=== PATIENT | male | born 1980 | race Hispanic/Latino ===

== ENCOUNTER 2019-06-10 17:24 | Inpatient (IN) | payer OTHER ==
[2019-06-10] MEDS ORDERED: ANTIVERT PO ONE (18:55)
[2019-06-10] MEDS ORDERED: ZOFRAN IV ONE (18:55)
[2019-06-10] MEDS ORDERED: FIORICET PO ONE (18:55)
--- NOTE | 2019-06-10 19:01 | Emergency Department Report ---
HPI - General Chief Complaint: Medical Clearance Time Seen by Provider: 06/10/19 18:41 - HPI HPI: Room 24 The patient is a 39-year-old male presenting with chief complaint headache and vertigo. 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 The patient states he has had frequent falls since this injury as well as chronic headaches. The patient states yesterday began to feel as though the room was spinning and this has been constant. The patient states is chronic headache has worsened and he gives his pain is scored 10/10. Patient complains of a headache on the left parietal and right occipital region. Patient admits to nausea and vomiting. The patient presented with the symptoms to another ED yesterday and reportedly said he could not live like this. The patient reportedly took a sharp object and cut his left wrist which subsequently led to him being placed on a 1013 and sent to a psychiatric hospital. The patient was sent to the ED from [facility] for neuro evaluation Location: [See above] Duration: [See above] Quality: [See above] Severity: [See above] Modifying factors: [see above] Context: [see above] Mode of transportation: [not driving] ED Past Medical Hx - Past Medical History Hx Psychiatric Treatment: (anxiety, depression) Additional medical history: [place] palsy, carpal tunnel - Surgical History Past Surgical History?: No - Family History Family history: no significant - Social History Smoking Status: Current Some Day Smoker Substance Use Type: Marijuana ED Review of Systems ROS: Stated complaint: MEDICAL CLEAR Other details as noted in HPI Constitutional: no symptoms reported Eyes: denies: eye pain ENT: denies: throat pain Respiratory: no symptoms reported Cardiovascular: denies: as per HPI, chest pain Endocrine: no symptoms reported Gastrointestinal: nausea, vomiting Genitourinary: denies: dysuria Musculoskeletal: denies: back pain Neurological: headache, vertigo Physical Exam - Physical Exam Physical Exam: GENERAL: The patient is well-developed well-nourished male lying on stretcher not appearing to be in acute distress. [] HEENT: Normocephalic. Atraumatic. Extraocular motions are intact. Prolonged n ystagmus in both directions with both eyes NECK: Supple. No meningitic signs are noted. There is no adenopathy noted. CHEST/LUNGS: Clear to auscultation. There is no respiratory distress noted. HEART/CARDIOVASCULAR: Regular. There is no tachycardia. There is no gallop rub or murmur. ABDOMEN: Abdomen is soft, nontender. Patient has normal bowel sounds. There is no abdominal distention. SKIN: There is no rash. There is no edema. There is no diaphoresis. NEURO: The patient is awake, alert, and oriented. The patient is cooperative. The patient has residual left-sided weakness from previous CVA. Cranial nerves II through XII grossly intact. Nystagmus noted in both directions. The patient has normal speech MUSCULOSKELETAL: There is no evidence of acute injury. ED Medical Decision Making - Lab Data Result diagrams: 06/10/19 19:20 06/10/19 19:20 Laboratory Tests 06/10/19 06/10/19 06/10/19 19:20 19:20 19:20 WBC 5.3 RBC 4.41 Hgb 14.5 Hct 41.7 MCV 95 H MCH 33 H MCHC 35 H RDW 13.4 Plt Count 189 Lymph % (Auto) 30.6 Sac % (Auto) 7.1 Eos % (Auto) 5.6 H Baso % (Auto) 1.3 Lymph # 1.6 Sac # 0.4 Eos # 0.3 Baso # 0.1 Seg Neutrophils % 55.4 Seg Neutrophils # 2.9 Sodium 140 Potassium 4.4 Chloride 100.2 Carbon Dioxide 30 Anion Gap 14 BUN 5 L Creatinine 0.7 L Estimated GFR > 60 BUN/Creatinine Ratio 7 Glucose 103 H Calcium 8.9 Total Bilirubin 0.20 AST 20 ALT 12 Alkaline Phosphatase 103 Total Protein 7.3 Albumin 4.3 Albumin/Globulin Ratio 1.4 TSH 0.549 Free T4 1.18 Phenytoin 06/10/19 20:00 WBC RBC Hgb Hct MCV MCH MCHC RDW Plt Count Lymph % (Auto) Sac % (Auto) Eos % (Auto) Baso % (Auto) Lymph # Sac # Eos # Baso # Seg Neutrophils % Seg Neutrophils # Sodium Potassium Chloride Carbon Dioxide Anion Gap BUN Creatinine Estimated GFR BUN/Creatinine Ratio Glucose Calcium Total Bilirubin AST ALT Alkaline Phosphatase Total Protein Albumin Albumin/Globulin Ratio TSH Free T4 Phenytoin 53.0 H* - Radiology Data Radiology results: report reviewed (CT head), image reviewed (CT head) [facility] [address] [place] [address] Cat Scan Report Signed Patient: LUIZA BAXTER MR#: [id number] : 1980 Acct:[id number] Age/Sex: 39 / M ADM Date: 06/10/19 Loc: ED Attending Dr: Ordering Physician: VERA ALEJANDRA MD Date of Service: 06/10/19 Procedure(s): CT head/brain wo con Accession Number(s): [id number] cc: VERA ALEJANDRA MD CT head/brain wo con INDICATION / CLINICAL INFORMATION: 39 years Male; headache and vertigo, h/o TBI 2018. TECHNIQUE: Routine CT head without contrast. All CT scans at this location are performed using CT dose reduction for ALARA by means of automated exposure control. COMPARISON: None. FINDINGS: BRAIN / INTRACRANIAL CONTENTS: No acute hemorrhage, mass effect, midline shift, hydrocephalus, or acute, large territorial infarct. No chronic infarct or focal atrophy. Normal brain volume and ventricular/sulcal size for age. No significant white matter abnormality. CRANIOCERVICAL JUNCTION: No significant abnormality. ORBITS: No significant abnormality of visualized orbits. SINUSES / MASTOIDS: No significant abnormality of the visualized paranasal sinuses or mastoid air cells. ADDITIONAL FINDINGS: None. IMPRESSION: 1. No focal mass, hemorrhage, hydrocephalus, or acute, large territorial infar ct. Signer Name: Madan Hamilton MD, III Signed: 06/10/2019 8:58 PM Workstation Name: [id number] Transcribed By: HR Dictated By: Madan Hamilton MD Electronically Authenticated By: Madan Hamilton MD Signed Date/Time: 06/10/192057 DD/ 55 TD/TT: - Differential Diagnosis vertigo, cerebellar mass, ICH, Critical care attestation.: If time is entered above; I have spent that time in minutes in the direct care of this critically ill patient, excluding procedure time. ED Disposition Clinical Impression: Dilantin toxicity Disposition: OP ADMIT IP TO THIS HOSP Is pt being admited?: Yes Does the pt Need Aspirin: No Condition: Fair Time of Disposition: 21:45 (hospitalist notified)
[2019-06-10 19:51] LABS: Basophils # (Auto) 0.1 K/mm3 (0.0-0.1); Basophils % (Auto) 1.3 % (0.0-1.8); Eosinophils # (Auto) 0.3 K/mm3 (0.0-0.4); Eosinophils % (Auto) 5.6 % (0.0-4.3); Hematocrit 41.7 % (35.5-45.6); Hemoglobin 14.5 gm/dl (11.8-15.2); Lymphocytes # (Auto) 1.6 K/mm3 (1.2-5.4); Lymphocytes % (Auto) 30.6 % (13.4-35.0); Mean Corpuscular HGB Conc 35 % (32-34); Mean Corpuscular Volume 95 fl (84-94); Monocytes # (Auto) 0.4 K/mm3 (0.0-0.8); Monocytes % (Auto) 7.1 % (0.0-7.3); Platelet Count 189 K/mm3 (140-440); Red Blood Count 4.41 M/mm3 (3.65-5.03); Red Cell Distribution Width 13.4 % (13.2-15.2)
[2019-06-10 20:28] LABS: Albumin 4.3 g/dL (3.9-5); BUN/Creatinine Ratio 7; Blood Urea Nitrogen 5 mg/dL (9-20); Calcium 8.9 mg/dL (8.4-10.2); Hemolysis Index 126
[2019-06-10 20:30] LABS: Alanine Aminotransferase 12 units/L (7-56)
[2019-06-10 20:35] LABS: Free T4 (Free Thyroxine) 1.18 ng/dL (0.76-1.46)
--- NOTE | 2019-06-10 21:02 | Cat Scan Report ---
CT head/brain wo con INDICATION / CLINICAL INFORMATION: 39 years Male; headache and vertigo, h/o TBI 2018. TECHNIQUE: Routine CT head without contrast. All CT scans at this location are performed using CT dos e reduction for ALARA by means of automated exposure control. COMPARISON: None. FINDINGS: BRAIN / INTRACRANIAL CONTENTS: No acute hemorrhage, mass effect, midline shift, hydrocephalus, or acu te, large territorial infarct. No chronic infarct or focal atrophy. Normal brain volume and ventricul ar/sulcal size for age. No significant white matter abnormality. CRANIOCERVICAL JUNCTION: No significant abnormality. ORBITS: No significant abnormality of visualized orbits. SINUSES / MASTOIDS: No significant abnormality of the visualized paranasal sinuses or mastoid air kelley ls. ADDITIONAL FINDINGS: None. IMPRESSION: 1. No focal mass, hemorrhage, hydrocephalus, or acute, large territorial infarct. Signer Name: Madan Hamilton MD, III Signed: 06/10/2019 8:58 PM Workstation Name: [id number]
[2019-06-11] MEDS ORDERED: ZOFRAN IV PRN (00:18)
[2019-06-11] MEDS: TYLENOL PO PRN ×4 (01:55→21:37)
[2019-06-11] MEDS: HEPARIN SUB-Q SCH ×3 (01:55→21:40)
[2019-06-11] MEDS ORDERED: NACL 0.9% 1000 ML 1,000 ML IV SCH (06:00)
--- NOTE | 2019-06-11 06:40 | History and Physical Report ---
CHIEF COMPLAINT: Headache and vertigo. Other complaint includes frequent falls, nausea and vomiting. HISTORY OF PRESENT ILLNESS: The patient is a 39-year-old male sent from [facility] for medical clearance and has been having headache and vertigo. The patient also complains of nausea and vomiting and was sent to another Emergency Room the day prior to presentation and he said he has been forgetting things and cut his left wrist with a sharp object and was placed on involuntary confinement and he ended up in the psychiatric hospital from where he was sent to this hospital for medical clearance. There is no history of fever or chills. No history of shortness of breath or chest pain. The patient was evaluated and found to have high level of Dilantin level. PAST MEDICAL HISTORY: Pertinent for seizure disorder. Also patient has past history of traumatic brain injury after falling down from a height. The patient also has past medical history of [place]el's palsy, carpal tunnel syndrome, anxiety disorder and depression. PAST SURGICAL HISTORY: Unremarkable. FAMILY HISTORY: Noncontributory. SOCIAL HISTORY: The patient smokes cigarettes, uses marijuana and does not drink alcohol. MEDICATIONS: The patient is on Keppra 750 mg by mouth twice daily. Also, the patient is on Dilantin 300 mg at bedtime. ALLERGIES: THE PATIENT IS ALLERGIC TO BEE VENOM. REVIEW OF SYSTEMS: CONSTITUTIONAL: There is no fever, no chills, no diaphoresis. HEENT: There is headache. There is no sore throat. CARDIOVASCULAR SYSTEM: There is no chest pain or orthopnea. RESPIRATORY SYSTEM: There is no shortness of breath or cough. GASTROINTESTINAL SYSTEM: Nausea and vomiting present. No abdominal pain, no diarrhea or constipation. NEUROLOGICAL SYSTEM: Anxiety present. Occasional change in mental status noted. MUSCULOSKELETAL SYSTEM: There is no joint pain or swelling. DERMATOLOGICAL SYSTEM: There is no skin rash or itching. GENITOURINARY SYSTEM: There is no dysuria, hematuria, or flank pain. Rest of system review is normal. PHYSICAL EXAMINATION: GENERAL: At the time of exam, the patient was found to be alert, oriented x 3, anxious but not in acute distress. VITAL SIGNS: Shows temperature of 98 degrees Fahrenheit, pulse of 82, respirations 14, blood pressure 130/90, O2 sat of 97% on room air. HEENT: Showed pupils to be equal, round, reactive to light and accommodating. Extraocular muscles are intact. NECK: Supple with no JVD or carotid bruit. CARDIOVASCULAR SYSTEM: Showed normal first and second heart sounds with no gallops or murmurs. RESPIRATORY SYSTEM: Show good air entry on both sides of the lung with no abnormal breath sounds. GASTROINTESTINAL SYSTEM: Show abdomen to be full, soft, nontender with no organomegaly or rigidity. NEUROLOGICAL: Shows no focal deficit. MUSCULOSKELETAL SYSTEM: Show no joint swelling or tenderness. DERMATOLOGICAL SYSTEM: Show patient with a bandage in the left wrist area where he said he cut himself. Otherwise, there are no skin rashes. GENITOURINARY SYSTEM: Show no costovertebral angle tenderness. PERTINENT LABORATORY DATA AND IMAGING STUDIES: The patient had a CT of the head without contrast done that shows no focal mass, hemorrhage, hydrocephalus, or large territorial infarct. Lab results, the patient had CBC done with normal white count, normal hemoglobin and normal hematocrit with CBC differential showing elevated eosinophil count of 5.6. The patient's chemistry was unremarkable. The patient's toxicology screen show high Dilantin level of 53. DIAGNOSES: 1. Dilantin toxicity. 2. History of seizure disorder. PLAN OF CARE: 1. The patient will be admitted to telemetry. 2. The patient will have Dilantin level checked this morning. 3. The patient will be on IV normal saline at 125 mL an hour. 4. The patient will be Neurology consult with Dr. barahona for review of seizure medications. 5. The patient will be on p.r.n. medications like Tylenol 650 mg by mouth every 4 hours for fever and headache and IV Zofran 4 mg every 8 hours for nausea and vomiting. 6. The patient will be on IV lorazepam 1 mg every 2 hours as needed for seizure. 7. The patient will be on his home medication with Dilantin held and Keppra started at 750 mg by mouth twice daily. 8. The patient's diet will be regular diet. JOB# [id number] OCN/NTS MTDD
[2019-06-11] MEDS: KEPPRA PO SCH ×2 (09:32→21:40)
[2019-06-11] MEDS ORDERED: NON-FORMULARY (Levetiracetam [Keppra Tab] 750 MG) PO SCH (10:00)
--- NOTE | 2019-06-11 10:11 | Consultation ---
History of Present Illness Consult date: 06/11/19 Reason for Consult: seizure Chief complaint: Seizures History of present illness: Patient admitted from the psych facility where he attempted to injure himself cutting his left wrist and apparently has a seizure disorder began within the last year due to traumatic brain injury patient is a poor historian I called the psych facility to get more information including an MRI of the brain that he may have had without any help nevertheless patient describes having seizures since falling off a ladder within the year headaches inability to manipulate objects vision changes inability to read "I have a college degree and I can't read" the patient also describes the world looks like it's upside down Patient arrived with Dilantin toxicity his Dilantin level was over 53 he is unsure why this has happened he states that he makes a akash on the wall every time he takes the medication CT head shows no acute process patient's that he had an MRI done recently somewhere or try to locate an MRI and consider repeating it Patient did not have a seizure at the outside facility or since arrival here Yesterday to arrival here he was complaining of nausea vomiting difficulty with gait vertigo and increase headaches Patient was taking 300 Dilantin at night He states that he has seizures but unclear when his last one was denies ever being intubated for seizures, also denies prolonged seizures "I think I've had a stroke in the past" No SI or HI Past medical health palsy anxiety carpal tunnel Family history negative for neurologic disease Social history positive for tobacco and THC negative for alcohol Allergies bee sting Review of systems patient denies any loss of consciousness recently his headache is global cephalic without migrainous features or trigeminal features headaches are non-positional he denies any new focal deficits left or right no difficulty with speech or swallow he does add that his vision has changed and he cannot think Vahid rights as above patient denies any fever shortness of breath chest pain no change of bowel and bladder no new spine pain or radicular symptoms patient denies ongoing nausea vomiting vertigo Since admission patient states that he's feeling a little bit better He was started on Keppra in the ED and seizure precaution Medications and Allergies Allergies Allergy/AdvReac Type Severity Reaction Status Date / Time bee venom protein (honey bee) Allergy Swelling Verified 06/10/19 18:02 Home Medications Medication Instructions Recorded Confirmed Last Taken Type Phenytoin [Dilantin] 300 mg PO HS 06/11/19 06/11/19 1 Day Ago History ~06/10/19 levETIRAcetam [Keppra TAB] 750 mg PO BID 06/11/19 06/11/19 1 Day Ago History ~06/10/19 Active Meds: Active Medications Acetaminophen (Tylenol) 650 mg PO Q4H PRN PRN Reason: Fever >101 Last Admin: 06/11/19 09:43 Dose: 650 mg Documented by: Heparin Sodium (Porcine) (Heparin) 5,000 unit SUB-Q Q12HR [facility] Last Admin: 06/11/19 09:32 Dose: 5,000 unit Documented by: Sodium Chloride (Nacl 0.9% 1000 Ml) 1,000 mls @ 125 mls/hr IV DIRECT THOMAS Levetiracetam (Keppra) 750 mg PO BID [facility] Last Admin: 06/11/19 09:32 Dose: 750 mg Documented by: Lorazepam (Ativan) 1 mg IV Q2H PRN PRN Reason: Seizures Ondansetron HCl (Zofran) 4 mg IV Q8H PRN PRN Reason: Nausea And Vomiting Physical Examination - Vital Signs Vital Signs: Vital Signs Temp Pulse Resp BP Pulse Ox 98.9 F 74 18 136/68 100 06/10/19 18:51 06/10/19 18:51 06/10/19 18:51 06/10/19 18:51 06/10/19 18:51 - Physical Exam Narrative exam: no aphasia Patient has no signs of agnosia or apraxia - Constitutional General appearance: comfortable - EENT EENT: Present: hearing intact - Cardiovascular Cardiovascular: Present: regular rate Extremities: Present: no peripheral edema bilatateraly - Gastrointestinal Gastrointestinal: Present: non-tender - Neurologic Cranial nerve examination: PERRL, EOMI, nystagmus, V1/V2/V3 grossly intact, face symmetric, tongue midline, intact Speech examination: intact Sensorimotor examination: intact Motor examination - right side: 5: biceps, triceps, wrist flexion, wrist extension, elementary teacher, hip flexors, knee extensors, dorsiflexion, toe extension (EHL), plantarflexion Motor examination - left side: 5/5: biceps, triceps, wrist flexion, wrist extension, elementary teacher, hip flexors, knee extensors, dorsiflexion, toe extension (EHL), plantarflexion Detailed sensory examination: intact Reflexes: 2+: ankle, bicep, knee, tricep Cerebellar examination: nystagmus - Psychiatric Psychiatric: Present: depressed Results - Laboratory Findings CBC and BMP: 06/10/19 19:20 06/10/19 19:20 Abnormal Lab Findings: Abnormal Labs 06/10/19 06/10/19 06/10/19 19:20 19:20 20:00 MCV 95 H MCH 33 H MCHC 35 H Eos % (Auto) 5.6 H BUN 5 L Creatinine 0.7 L Glucose 103 H Phenytoin 53.0 H* Assessment and Plan ? Seizure disorder from prior traumatic brain injury within the last year CT head is negative -he was placed on Dilantin in the past patient arrives with Dilantin toxicity possibly overdose without breakthrough seizures he's been stable since admission exam is positive for nystagmus and self described loss of cortical function namely vision ability to read and understand along with headaches, for new onset seizures within the past year and the above described deficits check MRI brain without, continue Keppra, EEG 2 Dilantin toxicity discontinue Dilantin and start Keppra good hydration and follow levels 3 headaches Global cephalic without migrainous features patient may benefit from indomethacin 50 when necessary, will check MRI brain Seizure precautions Suicide precaution
--- NOTE | 2019-06-11 16:26 | Magnetic Resonance Report ---
MRI BRAIN 06/11/2019 INDICATION / CLINICAL INFORMATION: seizure d/o, new cortical compliants, and PALMA,. TECHNIQUE: Multiplanar, multisequence MR images of the brain were obtained. COMPARISON: None available. FINDINGS: BRAIN / INTRACRANIAL CONTENTS: MR images of the brain demonstrate no evidence of acute intracranial a bnormality. Ventricles and sulci are normal in size and shape. There is no evidence of acute ischemic injury, hemorrhage, or mass. There are 3 or 4 white matter T2 weighted hyperintensities in the periventricular white matter of cer ebral hemispheres, in a nonspecific appearance. Differential diagnosis in a patient of this age would include chronic small vessel ischemic change, demyelination. Temporal lobe structures are normal and symmetric. There are no abnormal extra-axial fluid collections. EXTRACRANIAL: Unremarkable CRANIOCERVICAL JUNCTION: No significant abnormality. VASCULAR FLOW-VOIDS: No significant abnormality. IMPRESSION: No acute abnormality.. No evidence of abnormal mass. Incidental white matter T2 weighted hyperintensities noted. Signer Name: Segun Braswell MD Signed: 06/11/2019 4:21 PM Workstation Name: [id number]
--- NOTE | 2019-06-11 18:41 | Event Note ---
Date: 06/11/19 39-year-old male presents form psych facility with complaints of nausea vomiting ataxia and the feeling of dizziness. Workup patient found to have Dilantin toxicity at a level of 53. Patient had recent CT scan was unremarkable. Patient appears to feel somewhat better after hospital stay. We'll continue Keppra discontinue Dilantin. Aggressive hydration follow Dilantin levels. Will also have patient see psychiatry. Soon to be medical clear to transfer back to psychiatric facility.
[2019-06-12] MEDS: KEPPRA PO SCH ×2 (09:43→21:14)
[2019-06-12] MEDS: TYLENOL PO PRN (09:43)
[2019-06-12] MEDS: HEPARIN SUB-Q SCH ×2 (09:43→21:14)
[2019-06-12] MEDS: LIDODERM 5% TD SCH (09:48)
--- NOTE | 2019-06-12 13:53 | Progress Note ---
Assessment and Plan ? Seizure disorder from prior TBI within the last year CT head is negative, MRI b neg he was placed on Dilantin in the past patient arrives with Dilantin toxicity possibly overdose no further breakthrough seizures, stable since admission exam is positive for nystagmus cont. constellation of complaints w/o objective findings continue Keppra, EEG ordered discontinue Dilantin good hydration and follow levels headaches: Global cephalic without migrainous features patient may benefit from indomethacin 50 when necessary Seizure precautions Suicide precaution Subjective Date of service: 06/12/19 Principal diagnosis: dilantin tox Interval history: no events overnight no sz still feels dizzy, has a constellation of complaints PALMA 10/10 non rad., no gustavo. sx, no tension, pt was seen comfortable MRI b neg eeg pending keppra on board dilantin now less than 50 no fever no n.v.v "i dont know where my home town is, why are my ears ringing i cant rem anything why do i lose my sight why do i have a head ache' i explained the mri b normal results, and further let pt know that I have no new [employer]CIENT [employer]ATOR dis process uncovered Objective - Exam Narrative Exam: aox 4 no aphasia no agnosia L and R nystagmus no cerebellar signs no extra movements neck supple - Vital Sign Vital Signs - 12hr 06/12/19 06/12/19 04:27 08:25 Temperature 98.4 F 97.6 F Pulse Rate 73 81 Respiratory 18 18 Rate Blood Pressure 84/52 115/76 O2 Sat by Pulse 95 98 Oximetry - Neurologic Cranial nerve examination: PERRL, EOMI, VFF, intact Speech examination: intact Detailed motor examination: grossly full strength in, full strength in all jo, other - Psychiatric Psychiatric: depressed - Laboratory Findings CBC and BMP: 06/10/19 19:20 06/10/19 19:20 Abnormal Lab Findings: Abnormal Labs 06/10/19 06/10/19 06/10/19 19:20 19:20 20:00 MCV 95 H MCH 33 H MCHC 35 H Eos % (Auto) 5.6 H BUN 5 L Creatinine 0.7 L Glucose 103 H Phenytoin 53.0 H* 06/11/19 05:25 MCV MCH MCHC Eos % (Auto) BUN Creatinine Glucose Phenytoin 46.3 H*
--- NOTE | 2019-06-12 21:12 | Progress Note ---
Assessment and Plan - Patient Problems (1) Dilantin toxicity Current Visit: Yes Status: Acute Plan to address problem: Patient presents with Dilantin toxicity. Has decreased with hydration from 5843. We'll follow levels in the a.m. With stable discharge back to rehabilitation facility. (2) Seizure disorder Current Visit: Yes Status: Acute Plan to address problem: Patient has not had any further seizures on Keppra. History Interval history: No new changes. Patient complains of continued headache. He has had for years. No new concerns. Dilantin down to 43. Hospitalist Physical - Constitutional Vitals: Temp Pulse Resp BP Pulse Ox 97.7 F 78 18 110/76 99 06/12/19 20:44 06/12/19 20:43 06/12/19 20:43 06/12/19 20:43 06/12/19 20:43 General appearance: Present: no acute distress - EENT Eyes: Present: PERRL, EOM intact ENT: hearing intact, dentition normal - Neck Neck: Present: supple, normal ROM - Respiratory Respiratory: bilateral: CTA - Cardiovascular Rhythm: regular - Extremities Extremities: no ischemia, pulses intact, pulses symmetrical, No edema, normal t emperature, normal color Peripheral Pulses: within normal limits - Abdominal General gastrointestinal: soft, non-tender, non-distended - Integumentary Integumentary: Present: clear, warm, dry - Psychiatric Psychiatric: appropriate mood/affect, intact judgment & insight, memory intact - Neurologic Neurologic: CNII-XII intact, other (nystagmus) Results - Labs CBC & Chem 7: 06/10/19 19:20 06/10/19 19:20 Labs: Laboratory Last Values WBC 5.3 K/mm3 (4.5-11.0) 06/10/19 19:20 RBC 4.41 M/mm3 (3.65-5.03) 06/10/19 19:20 Hgb 14.5 gm/dl (11.8-15.2) 06/10/19 19:20 Hct 41.7 % (35.5-45.6) 06/10/19 19:20 MCV 95 fl (84-94) H 06/10/19 19:20 MCH 33 pg (28-32) H 06/10/19 19:20 MCHC 35 % (32-34) H 06/10/19 19:20 RDW 13.4 % (13.2-15.2) 06/10/19 19:20 Plt Count 189 K/mm3 (140-440) 06/10/19 19:20 Lymph % (Auto) 30.6 % (13.4-35.0) 06/10/19 19:20 [place] % (Auto) 7.1 % (0.0-7.3) 06/10/19 19:20 Eos % (Auto) 5.6 % (0.0-4.3) H 06/10/19 19:20 Baso % (Auto) 1.3 % (0.0-1.8) 06/10/19 19:20 Lymph # 1.6 K/mm3 (1.2-5.4) 06/10/19 19:20 [place] # 0.4 K/mm3 (0.0-0.8) 06/10/19 19:20 Eos # 0.3 K/mm3 (0.0-0.4) 06/10/19 19:20 Baso # 0.1 K/mm3 (0.0-0.1) 06/10/19 19:20 Seg Neutrophils % 55.4 % (40.0-70.0) 06/10/19 19:20 Seg Neutrophils # 2.9 K/mm3 (1.8-7.7) 06/10/19 19:20 Sodium 140 mmol/L (137-145) 06/10/19 19:20 Potassium 4.4 mmol/L (3.6-5.0) 06/10/19 19:20 Chloride 100.2 mmol/L (98-107) 06/10/19 19:20 Carbon Dioxide 30 mmol/L (22-30) 06/10/19 19:20 14 mmol/L 06/10/19 19:20 BUN 5 mg/dL (9-20) L 06/10/19 19:20 0.7 mg/dL (0.8-1.5) L 06/10/19 19:20 Estimated GFR > 60 ml/min 06/10/19 19:20 7 % 06/10/19 19:20 Glucose 103 mg/dL (75-100) H 06/10/19 19:20 Calcium 8.9 mg/dL (8.4-10.2) 06/10/19 19:20 0.20 mg/dL (0.1-1.2) 06/10/19 19:20 AST 20 units/L (5-40) 06/10/19 19:20 ALT 12 units/L (7-56) 06/10/19 19:20 103 units/L (35-129) 06/10/19 19:20 7.3 g/dL (6.3-8.2) 06/10/19 19:20 4.3 g/dL (3.9-5) 06/10/19 19:20 1.4 % 06/10/19 19:20 TSH 0.549 mlU/mL (0.270-4.200) 06/10/19 19: Free T4 1.18 ng/dL (0.76-1.46) 06/10/19 19:20 Phenytoin 46.3 ug/mL (10.0-20.0) H* 06/11/19 05:25 Active Medications - Current Medications Current Medications: Generic Name Dose Route Start Last Admin Trade Name Freq PRN Reason Stop Dose Admin Acetaminophen 650 mg 06/11/19 00:18 06/12/19 09:43 Tylenol PO 650 mg Q4H PRN Administration Fever >101 Heparin Sodium (Porcine) 5,000 unit 06/11/19 00:15 06/12/19 09:43 Heparin SUB-Q 5,000 unit Q12HR THOMAS Administration Sodium Chloride 1,000 mls @ 125 mls/hr 06/11/19 06:00 Nacl 0.9% 1000 Ml IV DIRECT THOMAS Levetiracetam 750 mg 06/11/19 10:00 06/12/19 09:43 Keppra PO 750 mg BID THOMAS Administration Lidocaine 1 each 06/12/19 10:00 06/12/19 09:48 Lidoderm 5% TD 1 each QDAY THOMAS Administration Lorazepam 1 mg 06/11/19 00:17 Ativan IV Q2H PRN Seizures Ondansetron HCl 4 mg 06/11/19 00:18 06/11/19 18:36 Zofran IV 4 mg Q8H PRN Administration Nausea And Vomiting
[2019-06-13] MEDS: HEPARIN SUB-Q SCH ×2 (11:07→21:20)
[2019-06-13] MEDS: KEPPRA PO SCH ×2 (11:07→21:21)
[2019-06-13] MEDS: LIDODERM 5% TD SCH (11:08)
[2019-06-13] MEDS: TYLENOL PO PRN (11:22)
--- NOTE | 2019-06-13 13:25 | Progress Note ---
Assessment and Plan Assessment and plan: Dilantin toxicity. Dilantin level remains elevated. Seizure disorder. Patient with no further seizures on Keppra. Disposition. Consider discharge in a.m. if stable. History Interval history: No new issues overnight. Hospitalist Physical - Constitutional Vitals: Temp Pulse Resp BP Pulse Ox 98.2 F 86 18 117/72 97 06/13/19 10:59 06/13/19 12:14 06/13/19 10:59 06/13/19 12:14 06/13/19 12:14 General appearance: Present: no acute distress - EENT Eyes: Present: PERRL, EOM intact ENT: hearing intact, clear oral mucosa, dentition normal - Neck Neck: Present: supple, normal ROM - Respiratory Respiratory effort: normal Respiratory: bilateral: CTA - Cardiovascular Rhythm: regular Heart Sounds: Present: S1 & S2. Absent: gallop, rub - Extremities Extremities: no ischemia, No edema, Full ROM - Abdominal General gastrointestinal: soft, non-tender, non-distended, normal bowel sounds - Integumentary Integumentary: Present: clear, warm, dry - Neurologic Neurologic: CNII-XII intact, moves all extremities Results - Labs CBC & Chem 7: 06/10/19 19:20 06/10/19 19:20 Labs: Laboratory Last Values WBC 5.3 K/mm3 (4.5-11.0) 06/10/19 19:20 RBC 4.41 M/mm3 (3.65-5.03) 06/10/19 19:20 Hgb 14.5 gm/dl (11.8-15.2) 06/10/19 19:20 Hct 41.7 % (35.5-45.6) 06/10/19 19:20 MCV 95 fl (84-94) H 06/10/19 19:20 MCH 33 pg (28-32) H 06/10/19 19:20 MCHC 35 % (32-34) H 06/10/19 19:20 RDW 13.4 % (13.2-15.2) 06/10/19 19:20 Plt Count 189 K/mm3 (140-440) 06/10/19 19:20 Lymph % (Auto) 30.6 % (13.4-35.0) 06/10/19 19:20 [place] % (Auto) 7.1 % (0.0-7.3) 06/10/19 19:20 Eos % (Auto) 5.6 % (0.0-4.3) H 06/10/19 19:20 Baso % (Auto) 1.3 % (0.0-1.8) 06/10/19 19:20 Lymph # 1.6 K/mm3 (1.2-5.4) 06/10/19 19:20 [place] # 0.4 K/mm3 (0.0-0.8) 06/10/19 19:20 Eos # 0.3 K/mm3 (0.0-0.4) 06/10/19 19:20 Baso # 0.1 K/mm3 (0.0-0.1) 06/10/19 19:20 Seg Neutrophils % 55.4 % (40.0-70.0) 06/10/19 19:20 Seg Neutrophils # 2.9 K/mm3 (1.8-7.7) 06/10/19 19:20 Sodium 140 mmol/L (137-145) 06/10/19 19:20 Potassium 4.4 mmol/L (3.6-5.0) 06/10/19 19:20 Chloride 100.2 mmol/L (98-107) 06/10/19 19:20 Carbon Dioxide 30 mmol/L (22-30) 06/10/19 19:20 14 mmol/L 06/10/19 19:20 BUN 5 mg/dL (9-20) L 06/10/19 19:20 0.7 mg/dL (0.8-1.5) L 06/10/19 19:20 Estimated GFR > 60 ml/min 06/10/19 19:20 7 % 06/10/19 19:20 Glucose 103 mg/dL (75-100) H 06/10/19 19:20 Calcium 8.9 mg/dL (8.4-10.2) 06/10/19 19:20 0.20 mg/dL (0.1-1.2) 06/10/19 19:20 AST 20 units/L (5-40) 06/10/19 19:20 ALT 12 units/L (7-56) 06/10/19 19:20 103 units/L (35-129) 06/10/19 19:20 7.3 g/dL (6.3-8.2) 06/10/19 19:20 4.3 g/dL (3.9-5) 06/10/19 19:20 1.4 % 06/10/19 19:20 TSH 0.549 mlU/mL (0.270-4.200) 06/10/19 19:20 Free T4 1.18 ng/dL (0.76-1.46) 06/10/19 19:20 Phenytoin 34.9 ug/mL (10.0-20.0) H 06/13/19 10:30 Active Medications - Current Medications Current Medications: Generic Name Dose Route Start Last Admin Trade Name Freq PRN Reason Stop Dose Admin Acetaminophen 650 mg 06/11/19 00:18 06/13/19 11:22 Tylenol PO 650 mg Q4H PRN Administration Fever >101 Heparin Sodium (Porcine) 5,000 unit 06/11/19 00:15 06/13/19 11:07 Heparin SUB-Q 5,000 unit Q12HR THOMAS Administration Sodium Chloride 1,000 mls @ 125 mls/hr 06/11/19 06:00 Nacl 0.9% 1000 Ml IV DIRECT THOMAS Levetiracetam 750 mg 06/11/19 10:00 06/13/19 11:07 Keppra PO 750 mg BID THOMAS Administration Lidocaine 1 each 06/12/19 10:00 06/13/19 11:08 Lidoderm 5% TD 1 each QDAY THOMAS Administration Lorazepam 1 mg 06/11/19 00:17 Ativan IV Q2H PRN Seizures Ondansetron HCl 4 mg 06/11/19 00:18 06/11/19 18:36 Zofran IV 4 mg Q8H PRN Administration Nausea And Vomiting
--- NOTE | 2019-06-13 14:33 | Consultation ---
History of Present Illness - Reason for Consult Consult date: 06/13/19 Reason for consult: Mental Health Evaluation Requesting physician: THU WISDOM - Chief Complaint Chief complaint: 'I would walk into traffic" - History of Present Psychiatric Illness 39 y.o. white male who presented to the ER for headache and vertigo from [place]. Psychiatry was consulted to see the patient for SI's. Today the patient was calm and cooperative during the assessment. 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 He stated that he cannot remember much of anything that occurred in his life prior to the ladder accident. He stated that he cut his wrist because he wanted to see a neurologist before being discharged from a [facility] prior to being transferred to [place]. He stated that he wasn't suicidal at that time. He stated that he haven't seen a neurologist after his fall because of insurance issues. He stated that he feel like walking into traffic to kill himself if he do not get any help with his "neuro issues." He stated that he have no reason to live at this time. He rate his depression (hopelessness/helplessness) 10/10, with 10 being the worse. He could not confirm or deny a suicide attempt in the past nor a hx of mental health when asked. He denies HI's and AVH's. The could recall 1/3 numbers in 5 mins and stated that he is located in [place]. He has no idea how he ended up in [place]. Medications and Allergies Allergies Allergy/AdvReac Type Severity Reaction Status Date / Time bee venom protein (honey bee) Allergy Swelling Verified 06/10/19 18:02 dextrose Allergy Hives Verified 06/13/19 09:05 maltose Allergy Hives Verified 06/13/19 09:05 lactose AdvReac Itching Verified 06/13/19 09:05 Home Medications Medication Instructions Recorded Confirmed Last Taken Type Phenytoin [Dilantin] 300 mg PO HS 06/11/19 06/11/19 1 Day Ago History ~06/10/19 levETIRAcetam [Keppra TAB] 750 mg PO BID 06/11/19 06/11/19 1 Day Ago History ~06/10/19 Active Meds: Active Medications Acetaminophen (Tylenol) 650 mg PO Q4H PRN PRN Reason: Fever >101 Last Admin: 06/13/19 11:22 Dose: 650 mg Documented by: Heparin Sodium (Porcine) (Heparin) 5,000 unit SUB-Q Q12HR [facility] Last Admin: 06/13/19 11:07 Dose: 5,000 unit Documented by: Sodium Chloride (Nacl 0.9% 1000 Ml) 1,000 mls @ 125 mls/hr IV DIRECT THOMAS Levetiracetam (Keppra) 750 mg PO BID [facility] Last Admin: 06/13/19 11:07 Dose: 750 mg Documented by: Lidocaine (Lidoderm 5%) 1 each TD QDAY [facility] Last Admin: 06/13/19 11:08 Dose: 1 each Documented by: Lorazepam (Ativan) 1 mg IV Q2H PRN PRN Reason: Seizures Ondansetron HCl (Zofran) 4 mg IV Q8H PRN PRN Reason: Nausea And Vomiting Last Admin: 06/11/19 18:36 Dose: 4 mg Documented by: Past psychiatric history - Past Medical History Past Medical History: other (amnesia) Past Surgical History: No surgical history - past Psychiatric treatment and history psychiatric treatment history: denies a py hx as of now (currently). unable to obtain a fam psy hx. - Social History Social history: lives with family Mental Status Exam - Vital signs Last Vital Signs Temp 98.2 F 06/13/19 10:59 Pulse 86 06/13/19 12:14 Resp 18 06/13/19 10:59 BP 117/72 06/13/19 12:14 Pulse Ox 97 06/13/19 12:14 - Exam Narrative exam: MSE: Appearance: calm, cooperative Behavior: regular eye contact Speech: regular rate and tone Mood: "okay" Affect: congruent to mood flat Thought Process: logical Thought Content: denies HI's and AVH's Motor Activity: ambulatory Cognition: A/O x3 Insight: variable Judgment: poor Results Result Diagrams: 06/10/19 19:20 06/10/19 19:20 Abnormal lab results 06/12/19 06/13/19 Range/Units 21:29 10:30 Phenytoin 33.7 H 34.9 H (10.0-20.0) ug/mL All other labs normal. Assessment and Plan Assessment and plan: Impression: MDD. Today the patient was calm and cooperative during the assessment. UDS is negative. Recommendation/Plan: Initiate 103 and start Remeron 15 mg PO HS for depression. Discussed possible suicdality/medication induced charli with the p atient reference Remeron, he verbalized understanding. Dispo: Proper dispo will be determined once the patient is medically clear. Staffed with Dr Imelda Higuera.
[2019-06-13] MEDS: REMERON PO SCH (21:21)
[2019-06-14] MEDS: TYLENOL PO PRN ×3 (04:47→21:15)
[2019-06-14] MEDS: HEPARIN SUB-Q SCH ×2 (09:24→21:16)
[2019-06-14] MEDS: KEPPRA PO SCH ×2 (09:24→21:15)
[2019-06-14] MEDS: LIDODERM 5% TD SCH (09:25)
--- NOTE | 2019-06-14 11:49 | Progress Note ---
Assessment and Plan Assessment and plan: Dilantin toxicity. Dilantin level remains elevated. However, this would not preclude patient from discharge. No attributable or related neurological issue except potentially nystagmus. Seizure disorder. Patient with no further seizures on Keppra. EEG pending. Disposition. If EEG is normal, patient will be medically clear for discharge. I discussed the case in detail with neurology and psychiatry. History Interval history: No new issues overnight. Hospitalist Physical - Constitutional Vitals: Temp Pulse Resp BP Pulse Ox 97.9 F 100 H 17 110/80 98 06/14/19 10:30 06/14/19 10:30 06/14/19 10:30 06/14/19 10:30 06/14/19 10:30 General appearance: Present: no acute distress - EENT Eyes: Present: PERRL, EOM intact ENT: hearing intact, clear oral mucosa, dentition normal - Neck Neck: Present: supple, normal ROM - Respiratory Respiratory effort: normal Respiratory: bilateral: CTA - Cardiovascular Rhythm: regular Heart Sounds: Present: S1 & S2. Absent: gallop, rub - Extremities Extremities: no ischemia, No edema, Full ROM - Abdominal General gastrointestinal: soft, non-tender, non-distended, normal bowel sounds - Integumentary Integumentary: Present: clear, warm, dry - Neurologic Neurologic: CNII-XII intact, moves all extremities Results - Labs CBC & Chem 7: 06/10/19 19:20 06/10/19 19:20 Labs: Laboratory Last Values WBC 5.3 K/mm3 (4.5-11.0) 06/10/19 19:20 RBC 4.41 M/mm3 (3.65-5.03) 06/10/19 19:20 Hgb 14.5 gm/dl (11.8-15.2) 06/10/19 19:20 Hct 41.7 % (35.5-45.6) 06/10/19 19:20 MCV 95 fl (84-94) H 06/10/19 19:20 MCH 33 pg (28-32) H 06/10/19 19:20 MCHC 35 % (32-34) H 06/10/19 19:20 RDW 13.4 % (13.2-15.2) 06/10/19 19:20 Plt Count 189 K/mm3 (140-440) 06/10/19 19:20 Lymph % (Auto) 30.6 % (13.4-35.0) 06/10/19 19:20 [place] % (Auto) 7.1 % (0.0-7.3) 06/10/19 19:20 Eos % (Auto) 5.6 % (0.0-4.3) H 06/10/19 19:20 Baso % (Auto) 1.3 % (0.0-1.8) 06/10/19 19:20 Lymph # 1.6 K/mm3 (1.2-5.4) 06/10/19 19:20 [place] # 0.4 K/mm3 (0.0-0.8) 06/10/19 19:20 Eos # 0.3 K/mm3 (0.0-0.4) 06/10/19 19:20 Baso # 0.1 K/mm3 (0.0-0.1) 06/10/19 19:20 Seg Neutrophils % 55.4 % (40.0-70.0) 06/10/19 19:20 Seg Neutrophils # 2.9 K/mm3 (1.8-7.7) 06/10/19 19:20 Sodium 140 mmol/L (137-145) 06/10/19 19:20 Potassium 4.4 mmol/L (3.6-5.0) 06/10/19 19:20 Chloride 100.2 mmol/L (98-107) 06/10/19 19:20 Carbon Dioxide 30 mmol/L (22-30) 06/10/19 19:20 14 mmol/L 06/10/19 19:20 BUN 5 mg/dL (9-20) L 06/10/19 19:20 0.7 mg/dL (0.8-1.5) L 06/10/19 19:20 Estimated GFR > 60 ml/min 06/10/19 19:20 7 % 06/10/19 19:20 Glucose 103 mg/dL (75-100) H 06/10/19 19:20 Calcium 8.9 mg/dL (8.4-10.2) 06/10/19 19:20 0.20 mg/dL (0.1-1.2) 06/10/19 19:20 AST 20 units/L (5-40) 06/10/19 19:20 ALT 12 units/L (7-56) 06/10/19 19:20 103 units/L (35-129) 06/10/19 19:20 7.3 g/dL (6.3-8.2) 06/10/19 19:20 4.3 g/dL (3.9-5) 06/10/19 19:20 1.4 % 06/10/19 19:20 TSH 0.549 mlU/mL (0.270-4.200) 06/10/19 19:20 Free T4 1.18 ng/dL (0.76-1.46) 06/10/19 19:20 Phenytoin 28.4 ug/mL (10.0-20.0) H 06/14/19 05:25 Active Medications - Current Medications Current Medications: Generic Name Dose Route Start Last Admin Trade Name Freq PRN Reason Stop Dose Admin Acetaminophen 650 mg 06/11/19 00:18 06/14/19 09:23 Tylenol PO 650 mg Q4H PRN Administration Fever >101 Heparin Sodium (Porcine) 5,000 unit 06/11/19 00:15 06/14/19 09:24 Heparin SUB-Q 5,000 unit Q12HR [facility]OMAS Administration Sodium Chloride 1,000 mls @ 125 mls/hr 06/11/19 06:00 Nacl 0.9% 1000 Ml IV DIRECT THOMAS Levetiracetam 750 mg 06/11/19 10:00 06/14/19 09:24 Keppra PO 750 mg BID THOMAS Administration Lidocaine 1 each 06/12/19 10:00 06/14/19 09:25 Lidoderm 5% TD 1 each QDAY THOMAS Administration Lorazepam 1 mg 06/11/19 00:17 Ativan IV Q2H PRN Seizures Mirtazapine 15 mg 06/13/19 22:00 06/13/19 21:21 Remeron PO 15 mg QHS THOMAS Administration Ondansetron HCl 4 mg 06/11/19 00:18 06/11/19 18:36 Zofran IV 4 mg Q8H PRN Administration Nausea And Vomiting
--- NOTE | 2019-06-14 14:44 | Progress Note ---
Subjective - Reason for Consult Consult date: 06/14/19 Reason for consult: Psychiatry Follow-up - Chief Complaint Chief complaint: I'm had a EEG today" 39 y.o. white male who presented to the ER for headache and vertigo from [place]. Psychiatry was consulted to see the patient for SI's. Today the patient was calm and cooperative during the assessment. He stated that he is waiting to speak with the neurologist reference his EEG. He stated that he has a "sense of calm" today. He was asked about being suicidal, he stated, "I think I'm okay." He stated that he would like to be referred to outpatient psy services once discharged to continue treatment. He denies SI/HI's and AVH's. He denies any side effects of his medication. Mental Status Exam - Vital signs Last Vital Signs Temp 97.9 F 06/14/19 10:30 Pulse 100 H 06/14/19 10:30 Resp 17 06/14/19 10:30 BP 110/80 06/14/19 10:30 Pulse Ox 98 06/14/19 10:30 - Exam Narrative exam: MSE: Appearance: calm, cooperative Behavior: regular eye contact Speech: regular rate and tone Mood: "okay" Affect: congruent to mood flat Thought Process: logical Thought Content: denies SI/HI's and AVH's Motor Activity: ambulatory Cognition: A/O x3 Insight: fair Judgment: variable to fair Assessment and Plan Impression: MDD. Today the patient was calm and cooperative during the assessment. UDS is negative. Neuro is following the patient. Recommendation/Plan: Reevaluate the patient's 1013 in 24 hours. Continue Remeron 15 mg PO HS for depression. Discussed possible suicdality/medication induced charli with the patient reference Remeron, he verbalized understanding. Dispo: if the patient's 1013 is rescinded in 24 hours, he can follow up with [facility] for outpatient psy services. Will staff with Dr Imelda Higuera.
[2019-06-14] MEDS: ATIVAN IV PRN (21:16)
[2019-06-14] MEDS: REMERON PO SCH (21:16)
[2019-06-15] MEDS: KEPPRA PO SCH ×2 (10:00→21:30)
[2019-06-15] MEDS: LIDODERM 5% TD SCH (11:28)
[2019-06-15] MEDS: HEPARIN SUB-Q SCH ×2 (11:28→21:31)
--- NOTE | 2019-06-15 12:19 | Progress Note ---
Assessment and Plan Assessment and plan: Dilantin toxicity. Dilantin level remains elevated. However, this would not preclude patient from discharge. No attributable or related neurological issue except potentially nystagmus. Seizure disorder. Patient with no further seizures on Keppra. EEG reported as abnormal. Await neurology recommendations. History Interval history: No new issues overnight. Hospitalist Physical - Constitutional Vitals: Temp Pulse Resp BP Pulse Ox 97.9 F 91 H 16 115/72 96 06/15/19 08:12 06/15/19 11:38 06/15/19 08:12 06/15/19 11:38 06/15/19 11:38 General appearance: Present: no acute distress - EENT Eyes: Present: PERRL, EOM intact ENT: hearing intact, clear oral mucosa, dentition normal - Neck Neck: Present: supple, normal ROM - Respiratory Respiratory effort: normal Respiratory: bilateral: CTA - Cardiovascular Rhythm: regular Heart Sounds: Present: S1 & S2. Absent: gallop, rub - Extremities Extremities: no ischemia, No edema, Full ROM - Abdominal General gastrointestinal: soft, non-tender, non-distended, normal bowel sounds - Integumentary Integumentary: Present: clear, warm, dry - Neurologic Neurologic: CNII-XII intact, moves all extremities Results - Labs CBC & Chem 7: 06/10/19 19:20 06/10/19 19:20 Labs: Laboratory Last Values WBC 5.3 K/mm3 (4.5-11.0) 06/10/19 19:20 RBC 4.41 M/mm3 (3.65-5.03) 06/10/19 19:20 Hgb 14.5 gm/dl (11.8-15.2) 06/10/19 19:20 Hct 41.7 % (35.5-45.6) 06/10/19 19:20 MCV 95 fl (84-94) H 06/10/19 19:20 MCH 33 pg (28-32) H 06/10/19 19:20 MCHC 35 % (32-34) H 06/10/19 19:20 RDW 13.4 % (13.2-15.2) 06/10/19 19:20 Plt Count 189 K/mm3 (140-440) 06/10/19 19:20 Lymph % (Auto) 30.6 % (13.4-35.0) 06/10/19 19:20 [place] % (Auto) 7.1 % (0.0-7.3) 06/10/19 19:20 Eos % (Auto) 5.6 % (0.0-4.3) H 06/10/19 19:20 Baso % (Auto) 1.3 % (0.0-1.8) 06/10/19 19:20 Lymph # 1.6 K/mm3 (1.2-5.4) 06/10/19 19:20 [place] # 0.4 K/mm3 (0.0-0.8) 06/10/19 19:20 Eos # 0.3 K/mm3 (0.0-0.4) 06/10/19 19:20 Baso # 0.1 K/mm3 (0.0-0.1) 06/10/19 19:20 Seg Neutrophils % 55.4 % (40.0-70.0) 06/10/19 19:20 Seg Neutrophils # 2.9 K/mm3 (1.8-7.7) 06/10/19 19:20 Sodium 140 mmol/L (137-145) 06/10/19 19:20 Potassium 4.4 mmol/L (3.6-5.0) 06/10/19 19:20 Chloride 100.2 mmol/L (98-107) 06/10/19 19:20 Carbon Dioxide 30 mmol/L (22-30) 06/10/19 19:20 14 mmol/L 06/10/19 19:20 BUN 5 mg/dL (9-20) L 06/10/19 19:20 0.7 mg/dL (0.8-1.5) L 06/10/19 19:20 Estimated GFR > 60 ml/min 06/10/19 19:20 7 % 06/10/19 19:20 Glucose 103 mg/dL (75-100) H 06/10/19 19:20 Calcium 8.9 mg/dL (8.4-10.2) 06/10/19 19:20 0.20 mg/dL (0.1-1.2) 06/10/19 19:20 AST 20 units/L (5-40) 06/10/19 19:20 ALT 12 units/L (7-56) 06/10/19 19:20 103 units/L (35-129) 06/10/19 19:20 7.3 g/dL (6.3-8.2) 06/10/19 19:20 4.3 g/dL (3.9-5) 06/10/19 19:20 1.4 % 06/10/19 19:20 TSH 0.549 mlU/mL (0.270-4.200) 06/10/19 19:20 Free T4 1.18 ng/dL (0.76-1.46) 06/10/19 19:20 Phenytoin 28.4 ug/mL (10.0-20.0) H 06/14/19 05:25 Active Medications - Current Medications Current Medications: Generic Name Dose Route Start Last Admin Trade Name Freq PRN Reason Stop Dose Admin Acetaminophen 650 mg 06/11/19 00:18 06/14/19 21:15 Tylenol PO 650 mg Q4H PRN Administration Fever >101 Heparin Sodium (Porcine) 5,000 unit 06/11/19 00:15 06/15/19 11:28 Heparin SUB-Q 5,000 unit Q12HR [facility]AS Administration Sodium Chloride 1,000 mls @ 125 mls/hr 06/11/19 06:00 Nacl 0.9% 1000 Ml IV DIRECT THOMAS Levetiracetam 750 mg 06/11/19 10:00 06/15/19 10:00 Keppra PO 750 mg BID THOMAS Administration Lidocaine 1 each 06/12/19 10:00 06/15/19 11:28 Lidoderm 5% TD 1 each QDAY THOMAS Administration Lorazepam 1 mg 06/11/19 00:17 06/14/19 21:16 Ativan IV 1 mg Q2H PRN Administration Seizures Mirtazapine 15 mg 06/13/19 22:00 06/14/19 21:16 Remeron PO 15 mg QHS THOMAS Administration Ondansetron HCl 4 mg 06/11/19 00:18 06/11/19 18:36 Zofran IV 4 mg Q8H PRN Administration Nausea And Vomiting
--- NOTE | 2019-06-15 13:48 | Progress Note ---
Subjective - Reason for Consult Consult date: 06/15/19 Reason for consult: Psychiatric Follow-up Evaluation - Chief Complaint Chief complaint: "My back and head hurts" Patient is a 39 y.o. white male who presented to the ER for headache and vertigo from [place]. Psychiatry was consulted to see the patient for SI's. Today the patient is calm and cooperative during the assessment. Thought process is circumstantial. He reports fair sleep and appetite. He denies SI/HI's, A/VH's, and delusions. Patient reports that his symptoms are secondary to pain. Patient reports that he is pending his EEG results. Patient is alert and oriented x 2. Reports medication compliance. No side effects noted/reported. Mental Status Exam - Vital signs Last Vital Signs Temp 97.9 F 06/15/19 08:12 Pulse 99 H 06/15/19 12:00 Resp 16 06/15/19 08:12 BP 115/72 06/15/19 11:38 Pulse Ox 96 06/15/19 11:38 - Exam Narrative exam: Mental Status Exam Appearance: calm, cooperative Behavior: regular eye contact Speech: regular rate and tone Mood: "anxious, depressed, and sad" Affect: congruent to mood, flat Thought Process: logical, circumstantial Thought Content: denies SI/HI's, AVH's, and delusions Motor Activity: ambulatory Cognition: A/O x 2 Insight: fair Judgment: variable to fair Assessment and Plan Impression: MDD. Today the patient is calm and cooperative during the assessment. UDS is negative. Neuro is following the patient. At the time patient's 1013 is rescinded patient is in no imminent danger to self/others. Patient denies SI/HI's, A/VH's, and delusions. Discussed medications/coping skills. Patient verbalizes understanding. Recommendation/Plan: 1. Will rescind 1013. Patient does not meet criteria. 2. Continue Remeron 15 mg PO HS for depression. Discussed possible suicdality/medication induced charli with the patient reference Remeron, he verbalized understanding. 3. Will consult case management - needs assistance with resources. Disposition: Will rescind 1013. Patient can follow up with [facility] for outpatient psychiatric services. Will staff with Dr. Imelda Higuera.
[2019-06-15] MEDS: PERCOCET 5/325 PO PRN (18:42)
[2019-06-15] MEDS: REMERON PO SCH (21:31)
[2019-06-16] MEDS: KEPPRA PO SCH ×2 (09:47→21:26)
[2019-06-16] MEDS: HEPARIN SUB-Q SCH ×2 (09:48→21:26)
[2019-06-16] MEDS: LIDODERM 5% TD SCH (09:48)
[2019-06-16] MEDS: PERCOCET 5/325 PO PRN ×2 (10:16→19:13)
--- NOTE | 2019-06-16 10:17 | Progress Note ---
Assessment and Plan Assessment and plan: Dilantin toxicity. Dilantin level remains elevated. However, this would not preclude patient from discharge. No attributable or related neurological issue except potentially nystagmus. Seizure disorder. Patient with no further seizures on Keppra. EEG reported as abnormal. Await neurology recommendations. Suicidal ideation. Psychiatry has rescinded 1013. Deconditioning/Impaired Mobility. PT recommended subacute rehabilitation. History Interval history: No new issues overnight. Hospitalist Physical - Constitutional Vitals: Temp Pulse Resp BP Pulse Ox 97.9 F 76 18 91/58 98 06/16/19 07:53 06/16/19 07:53 06/16/19 07:53 06/16/19 07:53 06/16/19 07:53 General appearance: Present: no acute distress - EENT Eyes: Present: PERRL, EOM intact ENT: hearing intact, clear oral mucosa, dentition normal - Neck Neck: Present: supple, normal ROM - Respiratory Respiratory effort: normal Respiratory: bilateral: CTA - Cardiovascular Rhythm: regular Heart Sounds: Present: S1 & S2. Absent: gallop, rub - Extremities Extremities: no ischemia, No edema, Full ROM - Abdominal General gastrointestinal: soft, non-tender, non-distended, normal bowel sounds - Integumentary Integumentary: Present: clear, warm, dry - Neurologic Neurologic: CNII-XII intact, moves all extremities Results - Labs CBC & Chem 7: 06/10/19 19:20 06/10/19 19:20 Labs: Laboratory Last Values WBC 5.3 K/mm3 (4.5-11.0) 06/10/19 19:20 RBC 4.41 M/mm3 (3.65-5.03) 06/10/19 19:20 Hgb 14.5 gm/dl (11.8-15.2) 06/10/19 19:20 Hct 41.7 % (35.5-45.6) 06/10/19 19:20 MCV 95 fl (84-94) H 06/10/19 19:20 MCH 33 pg (28-32) H 06/10/19 19:20 MCHC 35 % (32-34) H 06/10/19 19:20 RDW 13.4 % (13.2-15.2) 06/10/19 19:20 Plt Count 189 K/mm3 (140-440) 06/10/19 19:20 Lymph % (Auto) 30.6 % (13.4-35.0) 06/10/19 19:20 [place] % (Auto) 7.1 % (0.0-7.3) 06/10/19 19:20 Eos % (Auto) 5.6 % (0.0-4.3) H 06/10/19 19:20 Baso % (Auto) 1.3 % (0.0-1.8) 06/10/19 19:20 Lymph # 1.6 K/mm3 (1.2-5.4) 06/10/19 19:20 [place] # 0.4 K/mm3 (0.0-0.8) 06/10/19 19:20 Eos # 0.3 K/mm3 (0.0-0.4) 06/10/19 19:20 Baso # 0.1 K/mm3 (0.0-0.1) 06/10/19 19:20 Seg Neutrophils % 55.4 % (40.0-70.0) 06/10/19 19:20 Seg Neutrophils # 2.9 K/mm3 (1.8-7.7) 06/10/19 19:20 Sodium 140 mmol/L (137-145) 06/10/19 19:20 Potassium 4.4 mmol/L (3.6-5.0) 06/10/19 19:20 Chloride 100.2 mmol/L (98-107) 06/10/19 19:20 Carbon Dioxide 30 mmol/L (22-30) 06/10/19 19:20 14 mmol/L 06/10/19 19:20 BUN 5 mg/dL (9-20) L 06/10/19 19:20 0.7 mg/dL (0.8-1.5) L 06/10/19 19:20 Estimated GFR > 60 ml/min 06/10/19 19:20 7 % 06/10/19 19:20 Glucose 103 mg/dL (75-100) H 06/10/19 19:20 Calcium 8.9 mg/dL (8.4-10.2) 06/10/19 19:20 0.20 mg/dL (0.1-1.2) 06/10/19 19:20 AST 20 units/L (5-40) 06/10/19 19:20 ALT 12 units/L (7-56) 06/10/19 19:20 103 units/L (35-129) 06/10/19 19:20 7.3 g/dL (6.3-8.2) 06/10/19 19:20 4.3 g/dL (3.9-5) 06/10/19 19:20 1.4 % 06/10/19 19:20 TSH 0.549 mlU/mL (0.270-4.200) 06/10/19 19:20 Free T4 1.18 ng/dL (0.76-1.46) 06/10/19 19:20 Phenytoin 28.4 ug/mL (10.0-20.0) H 06/14/19 05:25 Active Medications - Current Medications Current Medications: Generic Name Dose Route Start Last Admin Trade Name Freq PRN Reason Stop Dose Admin Acetaminophen 650 mg 06/11/19 00:18 06/14/19 21:15 Tylenol PO 650 mg Q4H PRN Administration Fever >101 Heparin Sodium (Porcine) 5,000 unit 06/11/19 00:15 06/16/19 09:48 Heparin SUB-Q 5,000 unit Q12HR THOMAS Administration Sodium Chloride 1,000 mls @ 125 mls/hr 06/11/19 06:00 Nacl 0.9% 1000 Ml IV DIRECT THOMAS Levetiracetam 750 mg 06/11/19 10:00 06/16/19 09:47 Keppra PO 750 mg BID THOMAS Administration Lidocaine 1 each 06/12/19 10:00 06/16/19 09:48 Lidoderm 5% TD 1 each QDAY THOMAS Administration Lorazepam 1 mg 06/11/19 00:17 06/14/19 21:16 Ativan IV 1 mg Q2H PRN Administration Seizures Mirtazapine 15 mg 06/13/19 22:00 06/15/19 21:31 Remeron PO 15 mg QHS THOMAS Administration Ondansetron HCl 4 mg 06/11/19 00:18 06/11/19 18:36 Zofran IV 4 mg Q8H PRN Administration Nausea And Vomiting Oxycodone/Acetaminophen 1 tab 06/15/19 16:16 06/15/19 18:42 Percocet 5/325 PO 1 tab Q6H PRN Administration Pain, Moderate (4-6)
[2019-06-16] MEDS: REMERON PO SCH (21:26)
[2019-06-17] MEDS: PERCOCET 5/325 PO PRN ×3 (05:43→18:35)
[2019-06-17] MEDS: KEPPRA PO SCH ×2 (10:17→22:19)
[2019-06-17] MEDS: LIDODERM 5% TD SCH (10:17)
[2019-06-17] MEDS: HEPARIN SUB-Q SCH ×2 (10:17→22:19)
--- NOTE | 2019-06-17 15:45 | Progress Note ---
Subjective Date of service: 06/17/19 Principal diagnosis: dilantin tox Interval history: A/P Dilantin toxicity. Dilantin level remains elevated as of 06/14. However, this would not preclude patient from discharge. No attributable or related neurological issue . No need for checking Dilantin levels as the medication has been discontinued Seizure disorder. Patient with no further seizures on Keppra. EEG reported as abnormal. Suicidal ideation. Psychiatry has rescinded 1013. Deconditioning/Impaired Mobility. Waiting for subacute rehabilitation placement History of TBI and intermittent amnesia Neurology note reviewed and appreciated Subjective Patient is alert and oriented 3 He offers no specific complaints of chronic back pain and has a back brace States he sometimes forgets things 12 point review of systems is unremarkable except as stated Objective - Constitutional Vitals: Vital Signs - 12hr 06/17/19 06/17/19 08:40 09:19 Temperature 97.6 F Pulse Rate 97 H 66 Respiratory 14 Rate Blood Pressure 105/66 O2 Sat by Pulse 99 Oximetry General appearance: Present: no acute distress, well-nourished - EENT Eyes: PERRL, EOM intact ENT: hearing intact, clear oral mucosa - Neck Neck: supple, normal ROM - Respiratory Respiratory effort: normal Respiratory: bilateral: CTA - Cardiovascular Rhythm: regular Heart Sounds: Present: S1 & S2 Extremities: No edema - Gastrointestinal General gastrointestinal: Present: soft, non-tender Rectal Exam: deferred - Integumentary Integumentary: clear - Musculoskeletal Musculoskeletal: strength equal bilaterally - Neurologic Neurologic: no focal deficits - Psychiatric Psychiatric: appropriate mood/affect - Labs CBC & Chem 7: 06/10/19 19:20 06/10/19 19:20
[2019-06-17] MEDS: REMERON PO SCH (22:19)
[2019-06-17] MEDS: ATIVAN IV PRN (23:08)
[2019-06-18] MEDS: KEPPRA PO SCH ×2 (10:42→23:04)
[2019-06-18] MEDS: LIDODERM 5% TD SCH (10:42)
[2019-06-18] MEDS: HEPARIN SUB-Q SCH ×2 (10:43→23:04)
[2019-06-18] MEDS: PERCOCET 5/325 PO PRN ×2 (11:53→23:04)
--- NOTE | 2019-06-18 13:53 | Progress Note ---
Assessment and Plan Assessment and plan: Dilantin toxicity -Dilantin discontinued -Level trended down. Seizure disorder -Stable on Keppra. -EEG reported as abnormal. Suicidal ideation. -Psychiatry has rescinded 1013. History of TBI and intermittent amnesia -Continue supportive care Chronic lower back pain -Continue pain management with percocet Deconditioning/Impaired Mobility. -Awaiting subacute rehabilitation placement Disposition: Awaiting [facility] placement, CM following History Interval history: Patient is seen today. He has no new complaints. He admits to chronic lower back pain. Hospitalist Physical - Constitutional Vitals: Temp Pulse Resp BP Pulse Ox 98.2 F 75 18 106/72 98 06/18/19 13:05 06/18/19 13:05 06/18/19 13:05 06/18/19 13:05 06/18/19 13:05 General appearance: Present: no acute distress, well-nourished - EENT Eyes: Present: PERRL, EOM intact ENT: hearing intact, clear oral mucosa - Neck Neck: Present: supple - Respiratory Respiratory effort: normal Respiratory: bilateral: CTA - Cardiovascular Rhythm: regular Heart Sounds: Present: S1 & S2 - Extremities Extremities: No edema - Abdominal General gastrointestinal: soft, non-tender, normal bowel sounds - Integumentary Integumentary: Present: clear, warm, dry - Neurologic Neurologic: moves all extremities Results - Labs CBC & Chem 7: 06/10/19 19:20 06/10/19 19:20 Labs: Laboratory Last Values WBC 5.3 K/mm3 (4.5-11.0) 06/10/19 19:20 RBC 4.41 M/mm3 (3.65-5.03) 06/10/19 19:20 Hgb 14.5 gm/dl (11.8-15.2) 06/10/19 19:20 Hct 41.7 % (35.5-45.6) 06/10/19 19:20 MCV 95 fl (84-94) H 06/10/19 19:20 MCH 33 pg (28-32) H 06/10/19 19:20 MCHC 35 % (32-34) H 06/10/19 19:20 RDW 13.4 % (13.2-15.2) 06/10/19 19:20 Plt Count 189 K/mm3 (140-440) 06/10/19 19:20 Lymph % (Auto) 30.6 % (13.4-35.0) 06/10/19 19:20 [place] % (Auto) 7.1 % (0.0-7.3) 06/10/19 19:20 Eos % (Auto) 5.6 % (0.0-4.3) H 06/10/19 19:20 Baso % (Auto) 1.3 % (0.0-1.8) 06/10/19 19:20 Lymph # 1.6 K/mm3 (1.2-5.4) 06/10/19 19:20 [place] # 0.4 K/mm3 (0.0-0.8) 06/10/19 19:20 Eos # 0.3 K/mm3 (0.0-0.4) 06/10/19 19:20 Baso # 0.1 K/mm3 (0.0-0.1) 06/10/19 19:20 Seg Neutrophils % 55.4 % (40.0-70.0) 06/10/19 19:20 Seg Neutrophils # 2.9 K/mm3 (1.8-7.7) 06/10/19 19:20 Sodium 140 mmol/L (137-145) 06/10/19 19:20 Potassium 4.4 mmol/L (3.6-5.0) 06/10/19 19:20 Chloride 100.2 mmol/L (98-107) 06/10/19 19:20 Carbon Dioxide 30 mmol/L (22-30) 06/10/19 19:20 14 mmol/L 06/10/19 19:20 BUN 5 mg/dL (9-20) L 06/10/19 19:20 0.7 mg/dL (0.8-1.5) L 06/10/19 19:20 Estimated GFR > 60 ml/min 06/10/19 19:20 7 % 06/10/19 19:20 Glucose 103 mg/dL (75-100) H 06/10/19 19:20 Calcium 8.9 mg/dL (8.4-10.2) 06/10/19 19:20 0.20 mg/dL (0.1-1.2) 06/10/19 19:20 AST 20 units/L (5-40) 06/10/19 19:20 ALT 12 units/L (7-56) 06/10/19 19:20 103 units/L (35-129) 06/10/19 19:20 7.3 g/dL (6.3-8.2) 06/10/19 19:20 4.3 g/dL (3.9-5) 06/10/19 19:20 1.4 % 06/10/19 19:20 TSH 0.549 mlU/mL (0.270-4.200) 06/10/19 19:20 Free T4 1.18 ng/dL (0.76-1.46) 06/10/19 19:20 Phenytoin 28.4 ug/mL (10.0-20.0) H 06/14/19 05:25 Active Medications - Current Medications Current Medications: Generic Name Dose Route Start Last Admin Trade Name Freq PRN Reason Stop Dose Admin Acetaminophen 650 mg 06/11/19 00:18 06/14/19 21:15 Tylenol PO 650 mg Q4H PRN Administration Fever >101 Heparin Sodium (Porcine) 5,000 unit 06/11/19 00:15 06/18/19 10:43 Heparin SUB-Q 5,000 unit Q12HR [facility]OMAS Administration Levetiracetam 750 mg 06/11/19 10:00 06/18/19 10:42 Keppra PO 750 mg BID THOMAS Administration Lidocaine 1 each 06/12/19 10:00 06/18/19 10:42 Lidoderm 5% TD 1 each QDAY THOMAS Administration Lorazepam 1 mg 06/11/19 00:17 06/17/19 23:08 Ativan IV 1 mg Q2H PRN Administration Seizures Mirtazapine 15 mg 06/13/19 22:00 06/17/19 22:19 Remeron PO 15 mg QHS THOMAS Administration Ondansetron HCl 4 mg 06/11/19 00:18 06/11/19 18:36 Zofran IV 4 mg Q8H PRN Administration Nausea And Vomiting Oxycodone/Acetaminophen 1 tab 06/15/19 16:16 06/18/19 11:53 Percocet 5/325 PO 1 tab Q6H PRN Administration Pain, Moderate (4-6) Nutrition/Malnutrition Assess - Dietary Evaluation Nutrition/Malnutrition Findings: Nutrition Notes Start: 06/18/19 10:18 Freq: Status: Active Protocol: Document 06/18/19 10:18 RM (Rec: 06/18/19 10:19 RM [id number]) Nutrition Notes Need for Assessment generated from: LOS Initial or Follow up Brief Note Height 5 ft 10 in Weight 70.5 kg [place] Body Weight (kg) 75.45 BMI 22.3 Subjective/Other Information Screened for LOS. Recorded PO intake 100% X 3 days. Nutrition Intervention Revisit per MD consult or patient Sign Off request:
[2019-06-18] MEDS: REMERON PO SCH (23:04)
[2019-06-19] MEDS: HEPARIN SUB-Q SCH ×3 (08:56→22:12)
[2019-06-19] MEDS: LIDODERM 5% TD SCH ×2 (08:57→10:15)
[2019-06-19] MEDS: KEPPRA PO SCH ×3 (08:57→22:12)
[2019-06-19] MEDS: PERCOCET 5/325 PO PRN ×2 (08:57→22:13)
--- NOTE | 2019-06-19 12:43 | XRay Report ---
THORACIC SPINE HISTORY: Pain and history of fusion. COMPARISON: None. TECHNIQUE: 2 view(s) of the thoracic spine obtained. FINDINGS: Vertebrae: Chronic wedge compression fracture of T9 and fusion rods from T7 through T11. Normal align ment and normal appearance of the hardware. No other fracture. Disc Spaces:Negative disc disease at T8-9 with a large anterior osteophyte. Narrowing of the T9-10 di sc space. The rest of the disc spaces are normal. Paraspinous Soft Tissues:No significant abnormality. Additional findings: None. IMPRESSION: 1. A chronic T9 wedge compression fracture. 2. Status post posterior effusion T7-T11. 3. No acute finding. Signer Name: Gary Patel MD Signed: 06/19/2019 12:38 PM Workstation Name: [id number]
--- NOTE | 2019-06-19 14:27 | Progress Note ---
Assessment and Plan Assessment and plan: Dilantin toxicity -Dilantin discontinued -Level trended down. Seizure disorder -Stable on Keppra. -EEG reported as abnormal. -For out-patient neurology follow-up MDD with Suicidal ideation. -Psychiatry has rescinded 1013. -We will reconsult psych team for medication review due to poor sleep History of TBI and intermittent amnesia -Continue supportive care Acute on chronic lower back pain -Continue pain management with percocet -We'll do thoracolumbar x-ray for further evaluation Deconditioning/Impaired Mobility. -Awaiting subacute rehabilitation placement Disposition: Awaiting [facility] placement, following History Interval history: Patient complaining of severe lower back pain disturbing sleep. He also reports "seeing stars". Hospitalist Physical - Constitutional Vitals: Temp Pulse Resp BP Pulse Ox 98.2 F 77 18 120/72 100 06/19/19 12:31 06/19/19 12:31 06/19/19 12:31 06/19/19 12:31 06/19/19 12:31 General appearance: Present: no acute distress - EENT Eyes: Present: PERRL, EOM intact ENT: hearing intact, clear oral mucosa - Neck Neck: Present: supple - Respiratory Respiratory effort: normal Respiratory: bilateral: CTA - Cardiovascular Rhythm: regular Heart Sounds: Present: S1 & S2 - Extremities Extremities: No edema - Abdominal General gastrointestinal: soft, non-tender, non-distended, normal bowel sounds - Integumentary Integumentary: Present: clear, warm, dry - Psychiatric Psychiatric: other (some memory loss) - Neurologic Neurologic: moves all extremities Results - Labs CBC & Chem 7: 06/10/19 19:20 06/10/19 19:20 Labs: Laboratory Last Values WBC 5.3 K/mm3 (4.5-11.0) 06/10/19 19:20 RBC 4.41 M/mm3 (3.65-5.03) 06/10/19 19:20 Hgb 14.5 gm/dl (11.8-15.2) 06/10/19 19:20 Hct 41.7 % (35.5-45.6) 06/10/19 19:20 MCV 95 fl (84-94) H 06/10/19 19:20 MCH 33 pg (28-32) H 06/10/19 19:20 MCHC 35 % (32-34) H 06/10/19 19:20 RDW 13.4 % (13.2-15.2) 06/10/19 19:20 Plt Count 189 K/mm3 (140-440) 06/10/19 19:20 Lymph % (Auto) 30.6 % (13.4-35.0) 06/10/19 19:20 [place] % (Auto) 7.1 % (0.0-7.3) 06/10/19 19:20 Eos % (Auto) 5.6 % (0.0-4.3) H 06/10/19 19:20 Baso % (Auto) 1.3 % (0.0-1.8) 06/10/19 19:20 Lymph # 1.6 K/mm3 (1.2-5.4) 06/10/19 19:20 [place] # 0.4 K/mm3 (0.0-0.8) 06/10/19 19:20 Eos # 0.3 K/mm3 (0.0-0.4) 06/10/19 19:20 Baso # 0.1 K/mm3 (0.0-0.1) 06/10/19 19:20 Seg Neutrophils % 55.4 % (40.0-70.0) 06/10/19 19:20 Seg Neutrophils # 2.9 K/mm3 (1.8-7.7) 06/10/19 19:20 Sodium 140 mmol/L (137-145) 06/10/19 19:20 Potassium 4.4 mmol/L (3.6-5.0) 06/10/19 19:20 Chloride 100.2 mmol/L (98-107) 06/10/19 19:20 Carbon Dioxide 30 mmol/L (22-30) 06/10/19 19:20 14 mmol/L 06/10/19 19:20 BUN 5 mg/dL (9-20) L 06/10/19 19:20 0.7 mg/dL (0.8-1.5) L 06/10/19 19:20 Estimated GFR > 60 ml/min 06/10/19 19:20 7 % 06/10/19 19:20 Glucose 103 mg/dL (75-100) H 06/10/19 19:20 Calcium 8.9 mg/dL (8.4-10.2) 06/10/19 19:20 0.20 mg/dL (0.1-1.2) 06/10/19 19:20 AST 20 units/L (5-40) 06/10/19 19:20 ALT 12 units/L (7-56) 06/10/19 19:20 103 units/L (35-129) 06/10/19 19:20 7.3 g/dL (6.3-8.2) 06/10/19 19:20 4.3 g/dL (3.9-5) 06/10/19 19:20 1.4 % 06/10/19 19:20 TSH 0.549 mlU/mL (0.270-4.200) 06/10/19 19:20 Free T4 1.18 ng/dL (0.76-1.46) 06/10/19 19:20 Phenytoin 28.4 ug/mL (10.0-20.0) H 06/14/19 05:25 Active Medications - Current Medications Current Medications: Generic Name Dose Route Start Last Admin Trade Name Freq PRN Reason Stop Dose Admin Acetaminophen 650 mg 06/11/19 00:18 06/14/19 21:15 Tylenol PO 650 mg Q4H PRN Administration Fever >101 Heparin Sodium (Porcine) 5,000 unit 06/11/19 00:15 06/19/19 10:15 Heparin SUB-Q Not Given Q12HR [facility] Levetiracetam 750 mg 06/11/19 10:00 06/19/19 10:15 Keppra PO Not Given BID [facility] Lidocaine 1 each 06/12/19 10:00 06/19/19 10:15 Lidoderm 5% TD Not Given QDAY [facility]OM[facility] Lorazepam 1 mg 06/11/19 00:17 06/17/19 23:08 Ativan IV 1 mg Q2H PRN Administration Seizures Mirtazapine 15 mg 06/13/19 22:00 06/18/19 23:04 Remeron PO 15 mg QHS THOMAS Administration Ondansetron HCl 4 mg 06/11/19 00:18 06/11/19 18:36 Zofran IV 4 mg Q8H PRN Administration Nausea And Vomiting Oxycodone/Acetaminophen 1 tab 06/15/19 16:16 06/19/19 08:57 Percocet 5/325 PO 1 tab Q6H PRN Administration Pain, Moderate (4-6) Nutrition/Malnutrition Assess - Dietary Evaluation Nutrition/Malnutrition Findings: Nutrition Notes Start: 06/18/19 10:18 Freq: Status: Active Protocol: Document 06/18/19 10:18 RM (Rec: 06/18/19 10:19 RM [id number]) Nutrition Notes Need for Assessment generated from: LOS Initial or Follow up Brief Note Height 5 ft 10 in Weight 70.5 kg [place] Body Weight (kg) 75.45 BMI 22.3 Subjective/Other Information Screened for LOS. Recorded PO intake 100% X 3 days. Nutrition Intervention Revisit per MD consult or patient Sign Off request:
[2019-06-19] MEDS: REMERON PO SCH (22:12)
[2019-06-20] MEDS: HEPARIN SUB-Q SCH ×2 (09:15→21:00)
[2019-06-20] MEDS: LIDODERM 5% TD SCH (09:15)
[2019-06-20] MEDS: KEPPRA PO SCH ×2 (09:17→20:59)
[2019-06-20] MEDS: PERCOCET 5/325 PO PRN ×3 (09:18→21:00)
--- NOTE | 2019-06-20 12:09 | Progress Note ---
Assessment and Plan Assessment and plan: Dilantin toxicity -Dilantin discontinued -Level trended down. Seizure disorder -Stable on Keppra. -EEG reported as abnormal. -For out-patient neurology follow-up MDD with Suicidal ideation. -Psychiatry has rescinded 1013. -Continue Remeron History of TBI and intermittent amnesia -Continue supportive care Acute on chronic lower back pain -Continue pain management with percocet Chronic C9 compression fracture per imaging -Status post effusion T7 to T11, stable Deconditioning/Impaired Mobility. -Awaiting subacute rehabilitation placement Disposition: Awaiting [facility] placement, following History Interval history: Patient stated that he had a better night sleep. He denies hallucination or worsening headaches. Hospitalist Physical - Constitutional Vitals: Temp Pulse Resp BP Pulse Ox 97.5 F L 77 20 96/57 98 06/20/19 05:18 06/20/19 05:18 06/20/19 05:18 06/20/19 05:18 06/20/19 05:18 General appearance: Present: no acute distress - EENT Eyes: Present: PERRL, EOM intact ENT: hearing intact - Neck Neck: Present: supple - Respiratory Respiratory effort: normal Respiratory: bilateral: CTA - Cardiovascular Rhythm: regular Heart Sounds: Present: S1 & S2 - Extremities Extremities: No edema - Abdominal General gastrointestinal: soft, non-tender, non-distended, normal bowel sounds - Integumentary Integumentary: Present: clear, warm, dry - Psychiatric Psychiatric: appropriate mood/affect - Neurologic Neurologic: moves all extremities Results - Labs CBC & Chem 7: 06/10/19 19:20 06/10/19 19:20 Labs: Laboratory Last Values WBC 5.3 K/mm3 (4.5-11.0) 06/10/19 19:20 RBC 4.41 M/mm3 (3.65-5.03) 06/10/19 19:20 Hgb 14.5 gm/dl (11.8-15.2) 06/10/19 19:20 Hct 41.7 % (35.5-45.6) 06/10/19 19:20 MCV 95 fl (84-94) H 06/10/19 19:20 MCH 33 pg (28-32) H 06/10/19 19:20 MCHC 35 % (32-34) H 06/10/19 19:20 RDW 13.4 % (13.2-15.2) 06/10/19 19:20 Plt Count 189 K/mm3 (140-440) 06/10/19 19:20 Lymph % (Auto) 30.6 % (13.4-35.0) 06/10/19 19:20 [place] % (Auto) 7.1 % (0.0-7.3) 06/10/19 19:20 Eos % (Auto) 5.6 % (0.0-4.3) H 06/10/19 19:20 Baso % (Auto) 1.3 % (0.0-1.8) 06/10/19 19:20 Lymph # 1.6 K/mm3 (1.2-5.4) 06/10/19 19:20 [place] # 0.4 K/mm3 (0.0-0.8) 06/10/19 19:20 Eos # 0.3 K/mm3 (0.0-0.4) 06/10/19 19:20 Baso # 0.1 K/mm3 (0.0-0.1) 06/10/19 19:20 Seg Neutrophils % 55.4 % (40.0-70.0) 06/10/19 19:20 Seg Neutrophils # 2.9 K/mm3 (1.8-7.7) 06/10/19 19:20 Sodium 140 mmol/L (137-145) 06/10/19 19:20 Potassium 4.4 mmol/L (3.6-5.0) 06/10/19 19:20 Chloride 100.2 mmol/L (98-107) 06/10/19 19:20 Carbon Dioxide 30 mmol/L (22-30) 06/10/19 19:20 14 mmol/L 06/10/19 19:20 BUN 5 mg/dL (9-20) L 06/10/19 19:20 0.7 mg/dL (0.8-1.5) L 06/10/19 19:20 Estimated GFR > 60 ml/min 06/10/19 19:20 7 % 06/10/19 19:20 Glucose 103 mg/dL (75-100) H 06/10/19 19:20 Calcium 8.9 mg/dL (8.4-10.2) 06/10/19 19:20 0.20 mg/dL (0.1-1.2) 06/10/19 19:20 AST 20 units/L (5-40) 06/10/19 19:20 ALT 12 units/L (7-56) 06/10/19 19:20 103 units/L (35-129) 06/10/19 19:20 7.3 g/dL (6.3-8.2) 06/10/19 19:20 4.3 g/dL (3.9-5) 06/10/19 19:20 1.4 % 06/10/19 19:20 TSH 0.549 mlU/mL (0.270-4.200) 06/10/19 19:20 Free T4 1.18 ng/dL (0.76-1.46) 06/10/19 19:20 Phenytoin 28.4 ug/mL (10.0-20.0) H 06/14/19 05:25 Active Medications - Current Medications Current Medications: Generic Name Dose Route Start Last Admin Trade Name Freq PRN Reason Stop Dose Admin Acetaminophen 650 mg 06/11/19 00:18 06/14/19 21:15 Tylenol PO 650 mg Q4H PRN Administration Fever >101 Heparin Sodium (Porcine) 5,000 unit 06/11/19 00:15 06/20/19 09:15 Heparin SUB-Q 5,000 unit Q12HR [facility] Administration Levetiracetam 750 mg 06/11/19 10:00 06/20/19 09:17 Keppra PO 750 mg BID THOMAS Administration Lidocaine 1 each 06/12/19 10:00 06/20/19 09:15 Lidoderm 5% TD 1 each QDAY THOMAS Administration Lorazepam 1 mg 06/11/19 00:17 06/17/19 23:08 Ativan IV 1 mg Q2H PRN Administration Seizures Mirtazapine 15 mg 06/13/19 22:00 06/19/19 22:12 Remeron PO 15 mg QHS THOMAS Administration Ondansetron HCl 4 mg 06/11/19 00:18 06/11/19 18:36 Zofran IV 4 mg Q8H PRN Administration Nausea And Vomiting Oxycodone/Acetaminophen 1 tab 06/15/19 16:16 06/20/19 09:18 Percocet 5/325 PO 1 tab Q6H PRN Administration Pain, Moderate (4-6) Nutrition/Malnutrition Assess - Dietary Evaluation Nutrition/Malnutrition Findings: Nutrition Notes Start: 06/18/19 10:18 Freq: Status: Active Protocol: Document 06/18/19 10:18 RM (Rec: 06/18/19 10:19 RM [id number]) Nutrition Notes Need for Assessment generated from: LOS Initial or Follow up Brief Note Height 5 ft 10 in Weight 70.5 kg [place] Body Weight (kg) 75.45 BMI 22.3 Subjective/Other Information Screened for LOS. Recorded PO intake 100% X 3 days. Nutrition Intervention Revisit per MD consult or patient Sign Off request:
[2019-06-20] MEDS: REMERON PO SCH (20:59)
[2019-06-21] MEDS: PERCOCET 5/325 PO PRN ×4 (05:35→23:04)
[2019-06-21] MEDS: HEPARIN SUB-Q SCH ×2 (10:40→22:06)
[2019-06-21] MEDS: KEPPRA PO SCH ×2 (10:44→22:03)
[2019-06-21] MEDS: LIDODERM 5% TD SCH (10:49)
--- NOTE | 2019-06-21 13:24 | Progress Note ---
Assessment and Plan Assessment and plan: Dilantin toxicity -Dilantin discontinued -Level trended down. Seizure disorder -Stable on Keppra. -EEG reported as abnormal. -For out-patient neurology follow-up MDD with Suicidal ideation. -Psychiatry has rescinded 1013. -Continue Remeron History of TBI and intermittent amnesia -Continue supportive care Acute on chronic lower back pain -Continue pain management with percocet Chronic C9 compression fracture per imaging -Status post effusion T7 to T11, stable Deconditioning/Impaired Mobility. -Awaiting subacute rehabilitation placement Insomnia -On PRN zolpidem Disposition: Awaiting [facility] placement, CM following History Interval history: Patient continues to report poor sleep with uncontrolled back pain Hospitalist Physical - Constitutional Vitals: Temp Pulse Resp BP Pulse Ox 98.5 F 76 20 128/72 99 06/21/19 12:32 06/21/19 12:31 06/21/19 12:32 06/21/19 12:32 06/21/19 12:31 General appearance: Present: no acute distress - EENT Eyes: Present: PERRL, EOM intact ENT: hearing intact, clear oral mucosa - Neck Neck: Present: supple - Respiratory Respiratory effort: normal Respiratory: bilateral: CTA - Cardiovascular Rhythm: regular Heart Sounds: Present: S1 & S2 - Extremities Extremities: No edema - Abdominal General gastrointestinal: soft, non-tender, normal bowel sounds - Integumentary Integumentary: Present: clear, warm, dry - Psychiatric Psychiatric: appropriate mood/affect - Neurologic Neurologic: CNII-XII intact Results - Labs CBC & Chem 7: 06/10/19 19:20 06/10/19 19:20 Labs: Laboratory Last Values WBC 5.3 K/mm3 (4.5-11.0) 06/10/19 19:20 RBC 4.41 M/mm3 (3.65-5.03) 06/10/19 19:20 Hgb 14.5 gm/dl (11.8-15.2) 06/10/19 19:20 Hct 41.7 % (35.5-45.6) 06/10/19 19:20 MCV 95 fl (84-94) H 06/10/19 19:20 MCH 33 pg (28-32) H 06/10/19 19:20 MCHC 35 % (32-34) H 06/10/19 19:20 RDW 13.4 % (13.2-15.2) 06/10/19 19:20 Plt Count 189 K/mm3 (140-440) 06/10/19 19:20 Lymph % (Auto) 30.6 % (13.4-35.0) 06/10/19 19:20 Ellis % (Auto) 7.1 % (0.0-7.3) 06/10/19 19:20 Eos % (Auto) 5.6 % (0.0-4.3) H 06/10/19 19:20 Baso % (Auto) 1.3 % (0.0-1.8) 06/10/19 19:20 Lymph # 1.6 K/mm3 (1.2-5.4) 06/10/19 19:20 Ellis # 0.4 K/mm3 (0.0-0.8) 06/10/19 19:20 Eos # 0.3 K/mm3 (0.0-0.4) 06/10/19 19:20 Baso # 0.1 K/mm3 (0.0-0.1) 06/10/19 19:20 Seg Neutrophils % 55.4 % (40.0-70.0) 06/10/19 19:20 Seg Neutrophils # 2.9 K/mm3 (1.8-7.7) 06/10/19 19:20 Sodium 140 mmol/L (137-145) 06/10/19 19:20 Potassium 4.4 mmol/L (3.6-5.0) 06/10/19 19:20 Chloride 100.2 mmol/L (98-107) 06/10/19 19:20 Carbon Dioxide 30 mmol/L (22-30) 06/10/19 19:20 14 mmol/L 06/10/19 19:20 BUN 5 mg/dL (9-20) L 06/10/19 19:20 0.7 mg/dL (0.8-1.5) L 06/10/19 19:20 Estimated GFR > 60 ml/min 06/10/19 19:20 7 % 06/10/19 19:20 Glucose 103 mg/dL (75-100) H 06/10/19 19:20 Calcium 8.9 mg/dL (8.4-10.2) 06/10/19 19:20 0.20 mg/dL (0.1-1.2) 06/10/19 19:20 AST 20 units/L (5-40) 06/10/19 19:20 ALT 12 units/L (7-56) 06/10/19 19:20 103 units/L (35-129) 06/10/19 19:20 7.3 g/dL (6.3-8.2) 06/10/19 19:20 4.3 g/dL (3.9-5) 06/10/19 19:20 1.4 % 06/10/19 19:20 TSH 0.549 mlU/mL (0.270-4.200) 06/10/19 19:20 Free T4 1.18 ng/dL (0.76-1.46) 06/10/19 19:20 Phenytoin 28.4 ug/mL (10.0-20.0) H 06/14/19 05:25 Active Medications - Current Medications Current Medications: Generic Name Dose Route Start Last Admin Trade Name Freq PRN Reason Stop Dose Admin Acetaminophen 650 mg 06/11/19 00:18 06/14/19 21:15 Tylenol PO 650 mg Q4H PRN Administration Fever >101 Heparin Sodium (Porcine) 5,000 unit 06/11/19 00:15 06/21/19 10:40 Heparin SUB-Q 5,000 unit Q12HR THOMAS Administration Levetiracetam 750 mg 06/11/19 10:00 06/21/19 10:44 Keppra PO 750 mg BID THOMAS Administration Lidocaine 1 each 06/12/19 10:00 06/21/19 10:49 Lidoderm 5% TD 1 each QDAY THOMAS Administration Lorazepam 1 mg 06/11/19 00:17 06/17/19 23:08 Ativan IV 1 mg Q2H PRN Administration Seizures Mirtazapine 30 mg 06/21/19 13:20 Remeron PO QHS THOMAS Ondansetron HCl 4 mg 06/11/19 00:18 06/11/19 18:36 Zofran IV 4 mg Q8H PRN Administration Nausea And Vomiting Oxycodone/Acetaminophen 1 tab 06/15/19 16:16 06/21/19 11:54 Percocet 5/325 PO 1 tab Q6H PRN Administration Pain, Moderate (4-6) Zolpidem Tartrate 5 mg 06/21/19 13:20 Ambien PO QHS PRN Sleep Nutrition/Malnutrition Assess - Dietary Evaluation Nutrition/Malnutrition Findings: Nutrition Notes Start: 06/18/19 10:18 Freq: Status: Active Protocol: Document 06/18/19 10:18 RM (Rec: 06/18/19 10:19 RM [id number]) Nutrition Notes Need for Assessment generated from: LOS Initial or Follow up Brief Note Height 5 ft 10 in Weight 70.5 kg [place] Body Weight (kg) 75.45 BMI 22.3 Subjective/Other Information Screened for LOS. Recorded PO intake 100% X 3 days. Nutrition Intervention Revisit per MD consult or patient Sign Off request:
[2019-06-21] MEDS: AMBIEN PO PRN (22:04)
[2019-06-21] MEDS: REMERON PO SCH (23:04)
[2019-06-22] MEDS: PERCOCET 5/325 PO PRN ×4 (06:27→21:53)
[2019-06-22] MEDS: LIDODERM 5% TD SCH (10:11)
[2019-06-22] MEDS: KEPPRA PO SCH ×2 (10:20→21:52)
[2019-06-22] MEDS: HEPARIN SUB-Q SCH ×2 (10:22→21:53)
--- NOTE | 2019-06-22 12:35 | Progress Note ---
Assessment and Plan Assessment and plan: Dilantin toxicity -Dilantin discontinued -Level trended down. Seizure disorder -Stable on Keppra. -Do not continue Dilantin at discharge per neurology -EEG reported as abnormal. -For out-patient neurology follow-up MDD with Suicidal ideation. -Psychiatry has rescinded 1013. -Continue Remeron History of TBI and intermittent amnesia -Continue supportive care Acute on chronic lower back pain -Continue pain management with percocet Chronic C9 compression fracture per imaging -Status post effusion T7 to T11, stable Deconditioning/Impaired Mobility. -Awaiting subacute rehabilitation placement Insomnia -On PRN zolpidem Disposition: Awaiting [facility] placement, following History Interval history: Patiently reported sleeping better last night. He has no new complaints. Hospitalist Physical - Constitutional Vitals: Temp Pulse Resp BP Pulse Ox 98.5 F 77 18 116/71 98 06/22/19 05:53 06/22/19 05:53 06/22/19 05:53 06/22/19 05:53 06/22/19 05:53 General appearance: Present: no acute distress - EENT Eyes: Present: PERRL, EOM intact ENT: hearing intact, clear oral mucosa - Neck Neck: Present: supple - Respiratory Respiratory effort: normal Respiratory: bilateral: CTA - Cardiovascular Rhythm: regular Heart Sounds: Present: S1 & S2 - Extremities Extremities: No edema - Abdominal General gastrointestinal: soft, non-tender, normal bowel sounds - Integumentary Integumentary: Present: clear, warm, dry - Psychiatric Psychiatric: appropriate mood/affect - Neurologic Neurologic: CNII-XII intact Results - Labs CBC & Chem 7: 06/10/19 19:20 06/10/19 19:20 Labs: Laboratory Last Values WBC 5.3 K/mm3 (4.5-11.0) 06/10/19 19:20 RBC 4.41 M/mm3 (3.65-5.03) 06/10/19 19:20 Hgb 14.5 gm/dl (11.8-15.2) 06/10/19 19:20 Hct 41.7 % (35.5-45.6) 06/10/19 19:20 MCV 95 fl (84-94) H 06/10/19 19:20 MCH 33 pg (28-32) H 06/10/19 19:20 MCHC 35 % (32-34) H 06/10/19 19:20 RDW 13.4 % (13.2-15.2) 06/10/19 19:20 Plt Count 189 K/mm3 (140-440) 06/10/19 19:20 Lymph % (Auto) 30.6 % (13.4-35.0) 06/10/19 19:20 [place] % (Auto) 7.1 % (0.0-7.3) 06/10/19 19:20 Eos % (Auto) 5.6 % (0.0-4.3) H 06/10/19 19:20 Baso % (Auto) 1.3 % (0.0-1.8) 06/10/19 19:20 Lymph # 1.6 K/mm3 (1.2-5.4) 06/10/19 19:20 Lewis # 0.4 K/mm3 (0.0-0.8) 06/10/19 19:20 Eos # 0.3 K/mm3 (0.0-0.4) 06/10/19 19:20 Baso # 0.1 K/mm3 (0.0-0.1) 06/10/19 19:20 Seg Neutrophils % 55.4 % (40.0-70.0) 06/10/19 19:20 Seg Neutrophils # 2.9 K/mm3 (1.8-7.7) 06/10/19 19:20 Sodium 140 mmol/L (137-145) 06/10/19 19:20 Potassium 4.4 mmol/L (3.6-5.0) 06/10/19 19:20 Chloride 100.2 mmol/L (98-107) 06/10/19 19:20 Carbon Dioxide 30 mmol/L (22-30) 06/10/19 19:20 14 mmol/L 06/10/19 19:20 BUN 5 mg/dL (9-20) L 06/10/19 19:20 0.7 mg/dL (0.8-1.5) L 06/10/19 19:20 Estimated GFR > 60 ml/min 06/10/19 19:20 7 % 06/10/19 19:20 Glucose 103 mg/dL (75-100) H 06/10/19 19:20 Calcium 8.9 mg/dL (8.4-10.2) 06/10/19 19:20 0.20 mg/dL (0.1-1.2) 06/10/19 19:20 AST 20 units/L (5-40) 06/10/19 19:20 ALT 12 units/L (7-56) 06/10/19 19:20 103 units/L (35-129) 06/10/19 19:20 7.3 g/dL (6.3-8.2) 06/10/19 19:20 4.3 g/dL (3.9-5) 06/10/19 19:20 1.4 % 06/10/19 19:20 TSH 0.549 mlU/mL (0.270-4.200) 06/10/19 19:20 Free T4 1.18 ng/dL (0.76-1.46) 06/10/19 19:20 Phenytoin 28.4 ug/mL (10.0-20.0) H 06/14/19 05:25 Active Medications - Current Medications Current Medications: Generic Name Dose Route Start Last Admin Trade Name Freq PRN Reason Stop Dose Admin Acetaminophen 650 mg 06/11/19 00:18 06/14/19 21:15 Tylenol PO 650 mg Q4H PRN Administration Fever >101 Heparin Sodium (Porcine) 5,000 unit 06/11/19 00:15 06/22/19 10:22 Heparin SUB-Q 5,000 unit Q12HR THOMAS Administration Levetiracetam 750 mg 06/11/19 10:00 06/22/19 10:20 Keppra PO 750 mg BID THOMAS Administration Lidocaine 1 each 06/12/19 10:00 06/22/19 10:11 Lidoderm 5% TD 1 each QDAY TOHMAS Administration Lorazepam 1 mg 06/11/19 00:17 06/17/19 23:08 Ativan IV 1 mg Q2H PRN Administration Seizures Mirtazapine 30 mg 06/21/19 22:00 06/21/19 23:04 Remeron PO 30 mg QHS THOMAS Administration Ondansetron HCl 4 mg 06/11/19 00:18 06/11/19 18:36 Zofran IV 4 mg Q8H PRN Administration Nausea And Vomiting Oxycodone/Acetaminophen 1 tab 06/21/19 13:21 06/22/19 11:04 Percocet 5/325 PO 1 tab Q4H PRN Administration Pain, Moderate (4-6) Zolpidem Tartrate 5 mg 06/21/19 13:20 06/21/19 22:04 Ambien PO 5 mg QHS PRN Administration Sleep Nutrition/Malnutrition Assess - Dietary Evaluation Nutrition/Malnutrition Findings: Nutrition Notes Start: 06/18/19 10:18 Freq: Status: Active Protocol: Document 06/18/19 10:18 RM (Rec: 06/18/19 10:19 RM [id number]) Nutrition Notes Need for Assessment generated from: LOS Initial or Follow up Brief Note Height 5 ft 10 in Weight 70.5 kg [place] Body Weight (kg) 75.45 BMI 22.3 Subjective/Other Information Screened for LOS. Recorded PO intake 100% X 3 days. Nutrition Intervention Revisit per MD consult or patient Sign Off request:
[2019-06-22] MEDS: ATIVAN IV PRN (19:08)
[2019-06-22] MEDS: REMERON PO SCH (21:52)
[2019-06-22] MEDS ORDERED: ULTRAM PO PRN (22:34)
[2019-06-22] MEDS: AMBIEN PO PRN (23:22)
[2019-06-23] MEDS: PERCOCET 5/325 PO PRN ×4 (03:54→19:12)
[2019-06-23] MEDS: KEPPRA PO SCH ×2 (10:20→22:40)
[2019-06-23] MEDS: LIDODERM 5% TD SCH (10:20)
[2019-06-23] MEDS: HEPARIN SUB-Q SCH ×2 (10:21→22:40)
--- NOTE | 2019-06-23 10:25 | Discharge Summary ---
Providers - Providers Date of Admission: 06/11/19 00:14 Attending physician: TOBY RODRIGUEZ MD 06/11/19 06:00 Consult to Physician [CONS] Routine Comment: Consulting Provider: CANDICE LÓPEZ Physician Instructions: Reason For Exam: SEIZURE DISORDER WITHDILANTIN TOXICITY 06/11/19 18:45 Consult to Mental Health [CONS] Routine Reason For Exam: mental health reconsult Place consult to:: office4 Notified:: psych Phone number called:: [phone] Was contact made?: Yes If yes, spoke with:: Mana Time called:: 18:46 06/13/19 13:26 Physical Therapy Evaluation and Treat [CONS] Routine Comment: Reason For Exam: deconditioning 06/15/19 15:37 Consult to Case Management [CONS] Stat Services Needed at Discharge: Occasional Caregiver Notified:: RN 06/19/19 14:29 Consult to Physician [CONS] Routine Comment: Consulting Provider: ANTONIA ESTRADA Physician Instructions: Reason For Exam: for med review due to poor sleep Primary care physician: GRISTMILLER Hospitalization Condition: Fair Hospital course: Dilantin toxicity -Dilantin discontinued -Level trended down. Seizure disorder -Stable on Keppra. -Do not continue Dilantin at discharge per neurology -EEG reported as abnormal. -For out-patient neurology follow-up MDD with Suicidal ideation. -Psychiatry has rescinded 1013. -Continue Remeron History of TBI and intermittent amnesia -Continue supportive care Acute on chronic lower back pain -Continue pain management with percocet Chronic C9 compression fracture per imaging -Status post effusion T7 to T11, stable Deconditioning/Impaired Mobility. -Awaiting subacute rehabilitation placement Insomnia -On PRN zolpidem Disposition: Awaiting [facility] placement, CM following Disposition: DC-01 TO HOME OR SELFCARE Time spent for discharge: 33 mins Core Measure Documentation - Palliative Care Palliative Care/ Comfort Measures: Not Applicable - Core Measures Any of the following diagnoses?: none Exam - Constitutional Vitals: Temp Pulse Resp BP Pulse Ox 97.6 F 58 L 19 98/53 98 06/23/19 06:40 06/23/19 06:40 06/23/19 06:40 06/23/19 06:40 06/23/19 06:40 General appearance: Present: no acute distress, well-nourished - EENT Eyes: Present: PERRL ENT: hearing intact, clear oral mucosa - Neck Neck: Present: supple, normal ROM - Respiratory Respiratory effort: normal Respiratory: bilateral: CTA - Cardiovascular Heart Sounds: Present: S1 & S2. Absent: rub, click - Extremities Extremities: pulses symmetrical, No edema Peripheral Pulses: within normal limits - Abdominal General gastrointestinal: Present: soft, non-tender, non-distended, normal bowel sounds Male genitourinary: Present: normal - Integumentary Integumentary: Present: clear, warm, dry - Musculoskeletal Musculoskeletal: gait normal, strength equal bilaterally - Psychiatric Psychiatric: appropriate mood/affect, intact judgment & insight - Neurologic Neurologic: CNII-XII intact, moves all extremities Plan Follow up with: PRIMARY CARE,MD [Primary Care Provider] - 7 Days Prescriptions: Mirtazapine [Remeron 15mg TAB] 30 mg PO QHS 30 Days #60 tablet levETIRAcetam [Keppra TAB] 750 mg PO BID #60 tablet oxyCODONE /ACETAMINOPHEN [Percocet 5/325 mg] 1 tab PO Q4H PRN #14 tablet PRN Reason: Pain, Moderate (4-6)
--- NOTE | 2019-06-23 13:33 | Progress Note ---
Assessment and Plan Assessment and plan: Dilantin toxicity -Dilantin discontinued -Level trended down. Seizure disorder -Stable on Keppra. -Do not continue Dilantin at discharge per neurology -EEG reported as abnormal. -For out-patient neurology follow-up MDD with Suicidal ideation. -Psychiatry has rescinded 1013. -Continue Remeron History of TBI and intermittent amnesia -Continue supportive care Acute on chronic lower back pain -Continue pain management with percocet Chronic C9 compression fracture per imaging -Status post effusion T7 to T11, stable Deconditioning/Impaired Mobility. -Awaiting subacute rehabilitation placement Insomnia -On PRN zolpidem Hospitalist Physical - Constitutional Vitals: Temp Pulse Resp BP Pulse Ox 98.5 F 102 H 18 120/80 99 06/23/19 12:52 06/23/19 12:52 06/23/19 12:52 06/23/19 12:52 06/23/19 12:52 General appearance: Present: no acute distress, well-nourished Results - Labs CBC & Chem 7: 06/10/19 19:20 06/10/19 19:20 Labs: Laboratory Last Values WBC 5.3 K/mm3 (4.5-11.0) 06/10/19 19:20 RBC 4.41 M/mm3 (3.65-5.03) 06/10/19 19:20 Hgb 14.5 gm/dl (11.8-15.2) 06/10/19 19:20 Hct 41.7 % (35.5-45.6) 06/10/19 19:20 MCV 95 fl (84-94) H 06/10/19 19:20 MCH 33 pg (28-32) H 06/10/19 19:20 MCHC 35 % (32-34) H 06/10/19 19:20 RDW 13.4 % (13.2-15.2) 06/10/19 19:20 Plt Count 189 K/mm3 (140-440) 06/10/19 19:20 Lymph % (Auto) 30.6 % (13.4-35.0) 06/10/19 19:20 [place] % (Auto) 7.1 % (0.0-7.3) 06/10/19 19:20 Eos % (Auto) 5.6 % (0.0-4.3) H 06/10/19 19:20 Baso % (Auto) 1.3 % (0.0-1.8) 06/10/19 19:20 Lymph # 1.6 K/mm3 (1.2-5.4) 06/10/19 19:20 [place] # 0.4 K/mm3 (0.0-0.8) 06/10/19 19:20 Eos # 0.3 K/mm3 (0.0-0.4) 06/10/19 19:20 Baso # 0.1 K/mm3 (0.0-0.1) 06/10/19 19:20 Seg Neutrophils % 55.4 % (40.0-70.0) 06/10/19 19:20 Seg Neutrophils # 2.9 K/mm3 (1.8-7.7) 06/10/19 19:20 Sodium 140 mmol/L (137-145) 06/10/19 19:20 Potassium 4.4 mmol/L (3.6-5.0) 06/10/19 19:20 Chloride 100.2 mmol/L (98-107) 06/10/19 19:20 Carbon Dioxide 30 mmol/L (22-30) 06/10/19 19:20 14 mmol/L 06/10/19 19:20 BUN 5 mg/dL (9-20) L 06/10/19 19:20 0.7 mg/dL (0.8-1.5) L 06/10/19 19:20 Estimated GFR > 60 ml/min 06/10/19 19:20 7 % 06/10/19 19:20 Glucose 103 mg/dL (75-100) H 06/10/19 19:20 Calcium 8.9 mg/dL (8.4-10.2) 06/10/19 19:20 0.20 mg/dL (0.1-1.2) 06/10/19 19:20 AST 20 units/L (5-40) 06/10/19 19:20 ALT 12 units/L (7-56) 06/10/19 19:20 103 units/L (35-129) 06/10/19 19:20 7.3 g/dL (6.3-8.2) 06/10/19 19:20 4.3 g/dL (3.9-5) 06/10/19 19:20 1.4 % 06/10/19 19:20 TSH 0.549 mlU/mL (0.270-4.200) 06/10/19 19:20 Free T4 1.18 ng/dL (0.76-1.46) 06/10/19 19:20 Phenytoin 28.4 ug/mL (10.0-20.0) H 06/14/19 05:25 Active Medications - Current Medications Current Medications: Generic Name Dose Route Start Last Admin Trade Name Freq PRN Reason Stop Dose Admin Acetaminophen 650 mg 06/11/19 00:18 06/14/19 21:15 Tylenol PO 650 mg Q4H PRN Administration Fever >101 Heparin Sodium (Porcine) 5,000 unit 06/11/19 00:15 06/23/19 10:21 Heparin SUB-Q 5,000 unit Q12HR THOMAS Administration Levetiracetam 750 mg 06/11/19 10:00 06/23/19 10:20 Keppra PO 750 mg BID THOMAS Administration Lidocaine 1 each 06/12/19 10:00 06/23/19 10:20 Lidoderm 5% TD 1 each QDAY THOMAS Administration Lorazepam 1 mg 06/11/19 00:17 06/22/19 19:08 Ativan IV 1 mg Q2H PRN Administration Seizures Mirtazapine 30 mg 06/21/19 22:00 06/22/19 21:52 Remeron PO 30 mg QHS THOMAS Administration Ondansetron HCl 4 mg 06/11/19 00:18 06/11/19 18:36 Zofran IV 4 mg Q8H PRN Administration Nausea And Vomiting Oxycodone/Acetaminophen 1 tab 06/21/19 13:21 06/23/19 10:24 Percocet 5/325 PO 1 tab Q4H PRN Administration Pain, Moderate (4-6) Tramadol HCl 25 mg 06/22/19 22:34 Ultram PO Q4H PRN Pain, Moderate (4-6) Zolpidem Tartrate 5 mg 06/21/19 13:20 06/22/19 23:22 Ambien PO 5 mg QHS PRN Administration Sleep Nutrition/Malnutrition Assess - Dietary Evaluation Nutrition/Malnutrition Findings: Nutrition Notes Start: 06/18/19 10:18 Freq: Status: Active Protocol: Document 06/18/19 10:18 RM (Rec: 06/18/19 10:19 RM [id number]) Nutrition Notes Need for Assessment generated from: LOS Initial or Follow up Brief Note Height 5 ft 10 in Weight 70.5 kg [place] Body Weight (kg) 75.45 BMI 22.3 Subjective/Other Information Screened for LOS. Recorded PO intake 100% X 3 days. Nutrition Intervention Revisit per MD consult or patient Sign Off request:
[2019-06-23] MEDS: REMERON PO SCH (22:39)
[2019-06-23] MEDS: AMBIEN PO PRN (22:49)
[2019-06-24] MEDS: PERCOCET 5/325 PO PRN ×2 (05:19→09:46)
[2019-06-24 06:06] VITALS: BP 92/52
[2019-06-24] MEDS: LIDODERM 5% TD SCH (09:43)
[2019-06-24] MEDS: HEPARIN SUB-Q SCH (09:45)
[2019-06-24] MEDS: KEPPRA PO SCH (09:46)
--- NOTE | 2019-06-24 13:54 | Consultation ---
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 He was admitted from the psychiatric unit, and was found to have Dilantin toxicity. Dilantin was stopped during the course of admission, and had reduced to normal levels. Keppra was continued during the course of admission. Patient was noted to have one possible seizure-like event 2 days ago, for which she was given Ativan, and this reportedly improved his symptoms. He states that he was previously taking Keppra as well as Dilantin. He cultures that he has had cognitive impairment sentences dramatic brain injury approximately one year ago, and does not have full recollection of how frequently he takes his medications. Neurology was consulted as patient is getting ready to be discharged, and antiseizure medication would need to be managed. Of note, the patient has had left-sided weakness and decreased sensation sentences fall with traumatic brain injury approximately one year ago. He is also had difficulty walk due to left-sided weakness since his traumatic brain injury and fall. Past History Past Medical History: seizures, other (amnesia, depression, anxiety, TBI.) Past Surgical History: No surgical history Social history: lives with family Family history: no significant family history Medications and Allergies Allergies Allergy/AdvReac Type Severity Reaction Status Date / Time bee venom protein (honey bee) Allergy Swelling Verified 06/10/19 18:02 dextrose Allergy Hives Verified 06/13/19 09:05 maltose Allergy Hives Verified 06/13/19 09:05 lactose AdvReac Itching Verified 06/13/19 09:05 Home Medications Medication Instructions Recorded Confirmed Last Taken Type Mirtazapine [Remeron 15mg TAB] 30 mg PO QHS 30 Days #60 tablet 06/23/19 Unknown Rx levETIRAcetam [Keppra TAB] 750 mg PO BID #60 tablet 06/23/19 Unknown Rx oxyCODONE /ACETAMINOPHEN [Percocet 1 tab PO Q4H PRN #14 tablet 06/23/19 Unknown Rx 5/325 mg] Active Meds: Active Medications Acetaminophen (Tylenol) 650 mg PO Q4H PRN PRN Reason: Fever >101 Last Admin: 06/14/19 21:15 Dose: 650 mg Documented by: Heparin Sodium (Porcine) (Heparin) 5,000 unit SUB-Q Q12HR [facility] Last Admin: 06/24/19 09:45 Dose: 5,000 unit Documented by: Levetiracetam (Keppra) 1,000 mg PO BID [facility] Lidocaine (Lidoderm 5%) 1 each TD QDAY [facility] Last Admin: 06/24/19 09:43 Dose: 1 each Documented by: Lorazepam (Ativan) 1 mg IV Q2H PRN PRN Reason: Seizures Last Admin: 06/22/19 19:08 Dose: 1 mg Documented by: Mirtazapine (Remeron) 30 mg PO QHS THOMAS Last Admin: 06/23/19 22:39 Dose: 30 mg Documented by: Ondansetron HCl (Zofran) 4 mg IV Q8H PRN PRN Reason: Nausea And Vomiting Last Admin: 06/11/19 18:36 Dose: 4 mg Documented by: Oxycodone/Acetaminophen (Percocet 5/325) 1 tab PO Q4H PRN PRN Reason: Pain, Moderate (4-6) Last Admin: 06/24/19 09:46 Dose: 1 tab Documented by: Tramadol HCl (Ultram) 25 mg PO Q4H PRN PRN Reason: Pain, Moderate (4-6) Zolpidem Tartrate (Ambien) 5 mg PO QHS PRN PRN Reason: Sleep Last Admin: 06/23/19 22:49 Dose: 5 mg Documented by: Review of Systems All systems: negative Musculoskeletal: other (left sided pain and weakness, chronic) Neurological: weakness, numbness, seizures Psychiatric: anxiety, depression Physical Examination - Vital Signs Vital Signs: Vital Signs Temp Pulse Resp BP Pulse Ox 98.9 F 74 18 136/68 100 06/10/19 18:51 06/10/19 18:51 06/10/19 18:51 06/10/19 18:51 06/10/19 18:51 - Constitutional General appearance: comfortable - EENT EENT: Present: ATNC, PERRL, mucous membranes moist - Respiratory Respiratory: Present: lungs clear, normal breath sounds - Cardiovascular Cardiovascular: Present: regular rate, normal S1, normal S2 Extremities: Present: no peripheral edema bilatateraly, no clubbing, cyanosis - Gastrointestinal Gastrointestinal: Present: normoactive bowel sounds, soft, non-tender - Integumentary Integumentary: Present: normal - Neurologic Cranial nerve examination: PERRL, EOMI, VFF, V1/V2/V3 grossly intact, face symmetric, tongue midline Speech examination: intact Motor examination - right side: 5/5: biceps, triceps, wrist flexion, wrist extension, anchorman, hip flexors, knee extensors, dorsiflexion, plantarflexion Motor examination - left side: 3/5: biceps (Left UE/LE limited due to pain), triceps, wrist flexion, wrist extension, anchorman, hip flexors, knee extensors, dorsiflexion, plantarflexion Detailed sensory examination: other (decreased on left) Reflexes: 2+: ankle, bicep, knee, tricep - Psychiatric Psychiatric: Present: mood/affect appropriate Results - Laboratory Findings CBC and BMP: 06/10/19 19:20 06/10/19 19:20 Abnormal Lab Findings: Abnormal Labs 06/10/19 06/10/19 06/10/19 19:20 19:20 20:00 MCV 95 H MCH 33 H MCHC 35 H Eos % (Auto) 5.6 H BUN 5 L Creatinine 0.7 L Glucose 103 H Phenytoin 53.0 H* 06/11/19 06/12/19 06/13/19 05:25 21:29 10:30 MCV MCH MCHC Eos % (Auto) BUN Creatinine Glucose Phenytoin 46.3 H* 33.7 H 34.9 H 06/14/19 05:25 MCV MCH MCHC Eos % (Auto) BUN Creatinine Glucose Phenytoin 28.4 H Assessment and Plan Patient is a 39-year-old man with a 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 During the course of this admission, patient was found to have Dilantin toxicity, for which Dilantin was stopped. The patient has been continued on Keppra 750 mg twice a day. He was noted to have a possible seizure-like episode 2 days ago. It is likely that the patient's history of seizures is related to his history of traumatic brain inj ury. The patient also states that he occasionally uses marijuana. He notes that he had sleep deprivation prior to admission, and part of his sleep deprivation is due to difficulty laying flat for an extended amount of time due to pain. Plan: 1. Seizures: Increase Keppra to 1000 mg twice a day. Patient had a possible seizure while taking keppra 750mg BID. Otherwise no significant events were no elizabeth during the course of this admission. Patient is being scheduled for discharge, therefore it was discussed with patient that it would not be the best decision for him to be started on a new medication for seizures immediately prior to discharge. It was further discussed that he needs to have full close follow-up with an outpatient neurologist, with whom he can follow up routinely to further manage seizures. Discussed with patient that it is recommended that he does not drive until cleared by DMV/DPS, and follows the local seizure driving laws according to the state that he moves too in the future. Seizure proper precautions were further discussed with the patient as well. Patient understood and agreed that he is not to drive and that he is to follow seizure precautions. Discussed plan of care with patient and primary team. Will sign off. Please call with any questions. Baljit Conway MD Neurology - Patient Problems (1) Seizure disorder Current Visit: Yes Status: Acute
[2019-06-24] MEDS ORDERED: KEPPRA PO SCH (22:00)
== END 2019-06-24 17:20 | disposition home or self-care (01) | DRG 101 ==
LOC: ED 17:24 → 4A 06-11 00:14 → 3A 06-18 12:53
PROVIDERS: ADMIT Internal Medicine; ATTEND Internal Medicine
DX: G40.909 Epilepsy, unspecified, not intractable, without status epilepticus (principal); R45.851 Suicidal ideations; M48.54XA Collapsed vertebra, not elsewhere classified, thoracic region, initial encounter for fracture; R51 Headache; F32.9 Major depressive disorder, single episode, unspecified; F41.9 Anxiety disorder, unspecified; G51.0 Bell's palsy; F17.210 Nicotine dependence, cigarettes, uncomplicated; T42.0X5A Adverse effect of hydantoin derivatives, initial encounter; Y92.89 Other specified places as the place of occurrence of the external cause; R27.0 Ataxia, unspecified; G89.29 Other chronic pain; M54.5 Low back pain; G47.00 Insomnia, unspecified; Z86.73 Personal history of transient ischemic attack (TIA), and cerebral infarction without residual deficits; Z91.030 Bee allergy status; Z88.8 Allergy status to other drugs, medicaments and biological substances
CPT/HCPCS: 36415; 70450; 70551; 72080; 80053; 80185; 84439; 84443; 85025; 95819; 96372; 96374; G0378; J1644; J2060; J2405